=== PATIENT | male | born 1960 | race Caucasian/White ===

== ENCOUNTER 2019-05-03 03:08 | Inpatient (IN) | payer MEDICAID, OTHER ==
[2019-05-03] VITALS (19 sets, daily range): BP systolic 91–183; BP diastolic 59–97; PULSE 69–96; RESP 16–20; Ht 167.6 cm; Wt 72.0 kg
[~2019-05-03] VITALS: Ht 167.6 cm; Wt 72.0 kg
[~2019-05-03 03:08] MED LIST: ASPI-817 PO; ATOR20TA38 PO; FOLI-49 PO; FURO-109 PO; HYDR-3671 PO; ISOS20TA19 PO; LOSA50TA14 PO; METO-448 PO; METO5TAB58 PO; NEPH PO; PIOG30TA12 PO
[2019-05-03] MEDS ORDERED: LIDOCAINE/MYLANTA 40 ML BTL PO STA (03:45)
[2019-05-03] MEDS ORDERED: FAMOTIDINE 20 MG TAB PO STA (03:45)
[2019-05-03] MEDS ORDERED: morphine 2 MG INJ IV STA (04:23)
[2019-05-03] MEDS ORDERED: ONDANSETRON 4 MG INJ IV STA (04:23)
--- NOTE | 2019-05-03 04:37 | ERD ---
ER Documentation Chief Complaint Chief Complaint RUQ pain after eating [place], c/o vomiting EYAD Is a 58-year-old male presents with right upper quadrant pain associated with vomiting since a day. His history is significant for hypertension, end-stage renal disease on dialysis Saturdays, as well as diabetes. Pain was associated with eating by a local earlier today, he states that he has not eaten anything since about 3 PM. He has no prior history of GI surgeries, symptoms are constant. ROS All systems reviewed and are negative except as per history of present illness. Medications Home Meds Reported Medications Multivit/Ca Carb/B Cmplx/Fa* (Petra-Naga*) 1 Tab Tab, 1 TAB PO DAILY, TAB 07/28/14 Metoclopramide* (Reglan*) 5 Mg Tablet, 5 MG PO TID PRN for GERD, TAB 07/28/14 Metoprolol Tartrate* (Lopressor*) 25 Mg Tab, 25 MG PO BID, TAB 07/28/14 Losartan Potassium* (Losartan Potassium*) 50 Mg Tablet, 50 MG PO DAILY, TAB 07/28/14 Isosorbide Dinitrate* (Isosorbide Dinitrate*) 20 Mg Tablet, 20 MG PO TID, TAB 07/28/14 Hydralazine Hcl* (Hydralazine Hcl*) 25 Mg Tab, 25 MG PO TID, TAB 07/28/14 Folic Acid* (Folic Acid*) 1 Mg Tablet, 1 MG PO DAILY, TAB 07/28/14 Aspirin* (Aspirin* EC) 81 Mg Tablet.dr, 81 MG PO DAILY, TAB 07/28/14 Atorvastatin Calcium* (Atorvastatin Calcium*) 20 Mg Tablet, 20 MG PO DAILY for HIGH CHOLESTEROL 02/15/14 Pioglitazone Hcl* (Actos*) 30 Mg Tablet, 30 MG PO DAILY 02/15/14 Furosemide* (Lasix*) 40 Mg Tablet, 40 MG PO QAM 02/15/14 Allergies Allergies: Coded Allergies: No Known Allergy (Unverified , 07/28/14) PMhx/Soc History of Surgery: No Anesthesia Reaction: No Hx Neurological Disorder: No Hx Respiratory Disorders: No Hx Cardiac Disorders: Yes (HYPERTENSION AND HYPERLIPIDIMIA) Hx Psychiatric Problems: No Hx Miscellaneous Medical Probl: Yes (ESRD,DM) Hx Alcohol Use: No Hx Substance Use: No Hx Tobacco Use: No Physical Exam Vitals Vital Signs Date Temp Pulse Resp B/P (MAP) Pulse Ox O2 O2 Flow FiO2 Time Delivery Rate 05/03/19 97.9 89 24 172/100 98 03:10 (124) Physical Exam Const: Moderate distress Head: Atraumatic Eyes: Normal Conjunctiva ENT: Normal External Ears, Nose and Mouth. Neck: Full range of motion. No meningismus. Resp: Clear to auscultation bilaterally Cardio: Regular rate and rhythm, no murmurs Abd: Soft, right upper quadrant tenderness, positive Arenas sign, non distended. Normal bowel sounds Skin: No petechiae or rashes Back: No midline or flank tenderness Ext: No cyanosis, or edema Neur: Awake and alert Psych: Normal Mood and Affect Result Diagram: 05/03/1935805/03/19358 Results 24 hrs Laboratory Tests Test 05/03/19 03:59 White Blood Count 8.5 10^3/ul Red Blood Count 4.67 10^6/ul Hemoglobin 14.4 g/dl Hematocrit 41.4 % Mean Corpuscular Volume 88.7 fl Mean Corpuscular Hemoglobin 30.8 pg Mean Corpuscular Hemoglobin Concent 34.8 g/dl Red Cell Distribution Width 13.9 % Platelet Count 249 10^3/UL Mean Platelet Volume 10.3 fl Immature Granulocytes % 0.500 % Neutrophils % 82.7 % Lymphocytes % 9.1 % Monocytes % 7.1 % Eosinophils % 0.4 % Basophils % 0.2 % Nucleated Red Blood Cells % 0.0 /100WBC Immature Granulocytes # 0.040 10^3/ul Neutrophils # 7.0 10^3/ul Lymphocytes # 0.8 10^3/ul Monocytes # 0.6 10^3/ul Eosinophils # 0.0 10^3/ul Basophils # 0.0 10^3/ul Nucleated Red Blood Cells # 0.0 10^3/ul Sodium Level 138 mmol/L Potassium Level 5.4 mmol/L Chloride Level 89 mmol/L Carbon Dioxide Level 34 mmol/L Anion Gap 15 Blood Urea Nitrogen 65 mg/dl Creatinine 8.85 mg/dl Est Glomerular Filtrat Rate mL/min 6 mL/min Glucose Level 307 mg/dl Calcium Level 9.4 mg/dl Total Bilirubin 0.7 mg/dl Direct Bilirubin 0.10 mg/dl Indirect Bilirubin 0.6 mg/dl Aspartate Amino Transf (AST/SGOT) 97 IU/L Alanine Aminotransferase (ALT/SGPT) 58 IU/L Alkaline Phosphatase 226 IU/L Troponin I Pending Total Protein 8.7 g/dl Albumin 4.6 g/dl Globulin 4.10 g/dl Albumin/Globulin Ratio 1.12 Lipase 377 U/L Current Medications Medications Dose Sig/Alexy Start Time Status Last (Trade) Ordered Route PRN Stop Time Admin Dose Reason Admin Famotidine 20 mg ONCE STAT 05/03/19 DC 05/03/19 (Pepcid) PO 03:45 04:04 05/03/19 03:46 40 ml ONCE STAT 05/03/19 DC 05/03/19 Miscellaneous PO 03:45 04:04 Medication 05/03/19 03:46 (Gi Cocktail (2)) Morphine 2 mg ONCE STAT 05/03/19 DC Sulfate IV 04:23 (morphine) 05/03/19 04:25 Ondansetron 4 mg ONCE STAT 05/03/19 DC HCl (Zofran IV 04:23 Inj) 05/03/19 04:25 Procedures/MDM 58-year-old male, with history of diabetes, end-stage renal disease on dialysis presents with right upper quadrant pain, his history and physical was concerning for acute cholecystitis, this was evident on ultrasound, LFTs were normal except for mildly elevated alkaline phosphatase. Patient had no signs of infection. Patient does have significant comorbidities, he will be admitted to telemetry. Accepting Care Team: Current data and ongoing care discussed. Primary: Júnior Consulting: Pietro Outstanding Data: none EKG: Rate/Rhythm: Normal Sinus Rhythm QRS, ST, T-waves: ST depressions noted inferiorly, no ST elevations Impression: No evidence of ischemia or arrhythmia Repeat EKG: Rate/Rhythm: Normal Sinus Rhythm QRS, ST, T-waves: No changes consistent w/ acute ischemia. ST elevations noted inferiorly, no changes from previous EKG Impression: No evidence of ischemia or arrhythmia Departure Diagnosis: Primary Impression: Abdominal pain Abdominal location: unspecified location Qualified Codes: R10.9 - Unsp ecified abdominal pain Additional Impression: Acute cholecystitis Condition: Serious WENCESLAO GREGG MD May 03, 2019 04:37
--- NOTE | 2019-05-03 04:57 | HP ---
Date/Time of Note Date/Time of Note DATE: 05/03/19 TIME: 04:56 Assessment/Plan VTE Prophylaxis SCD applied (from Nsg): Yes Pharmacological prophylaxis: NA/contraindicated Pharm contraindication: low risk/ambulating Lines/Catheters IV Catheter Type (from Nrsg): Saline Lock Assessment/Plan Hospital Course This is a 58-year male being admitted to the [facility] floor for: 1 right upper quadrant pain: Concern for possible acute cholecystitis. Ultrasound of the gallbladder shows gallstones with mild gallbladder wall thickening. He is afebrile and has a normal white blood cell count. General surgery Dr. Westbrook was consulted by the ED and recommendation was to proceed with a HIDA scan which has been ordered. We will initiate the patient on Zosyn at the current time, gentle IV fluid hydration with normal saline at 40 cc an hour. Pain management. Given patient's extensive cardiac history we will also consult for cardiac clearance. 2 end-stage renal disease: Patient is on hemodialysis Monday. Will consult Dr. Red for further management. Avoid nephrotoxic agents. Continue home meds 3 history of systolic diastolic CHF: Patient does not appear to be decompensated. Will consult cardiology. Will obtain an echocardiogram to assess heart morphology and function. 4. Hypertension: We will hold losartan given patient's hyperkalemia, will resume patient's other medications. 5. diabetes mellitus:We will hold home medications, check hemoglobin A1c, insulin sliding scale 6. Hyperlipidemia: Check lipid panel, continue statin 7 DVT GI prophylaxis: SCDs, H2 latoya Further treatment strategy will be implemented as per the clinical course Result Diagram: 05/03/19 0359 05/03/19 0359 Results 24hrs Laboratory Tests Test 05/03/19 03:59 White Blood Count 8.5 # Red Blood Count 4.67 L Hemoglobin 14.4 Hematocrit 41.4 L Mean Corpuscular Volume 88.7 Mean Corpuscular Hemoglobin 30.8 Mean Corpuscular Hemoglobin Concent 34.8 Red Cell Distribution Width 13.9 Platelet Count 249 Mean Platelet Volume 10.3 # Immature Granulocytes % 0.500 H Neutrophils % 82.7 H Lymphocytes % 9.1 L Monocytes % 7.1 Eosinophils % 0.4 Basophils % 0.2 Nucleated Red Blood Cells % 0.0 Immature Granulocytes # 0.040 H Neutrophils # 7.0 Lymphocytes # 0.8 Monocytes # 0.6 Eosinophils # 0.0 Basophils # 0.0 Nucleated Red Blood Cells # 0.0 Sodium Level 138 Potassium Level 5.4 H Chloride Level 89 L Carbon Dioxide Level 34 H Anion Gap 15 H Blood Urea Nitrogen 65 H Creatinine 8.85 H Est Glomerular Filtrat Rate mL/min 6 L Glucose Level 307 H Calcium Level 9.4 Total Bilirubin 0.7 Direct Bilirubin 0.10 Indirect Bilirubin 0.6 Aspartate Amino Transf (AST/SGOT) 97 H Alanine Aminotransferase (ALT/SGPT) 58 Alkaline Phosphatase 226 H Troponin I 0.027 Total Protein 8.7 H Albumin 4.6 Globulin 4.10 H Albumin/Globulin Ratio 1.12 Lipase 377 H HPI/ROS Admit Date/Time Admit Date/Time Hx of Present Illness Chief complaint: Right upper quadrant pain, vomiting Patient is a poor historian This is a 58-year-old male with past medical history of hypertension, diabetes, end-stage renal disease on HD, CHF, and possible history of [place] who presented to the emergency department complaining of right upper quadrant pain and vomiting. Patient reports that he went to apply local to eat and then after that started experiencing right upper quadrant pain and vomiting. He denies any fevers. He reports that the pain radiated to his back. Allergies: NKDA Medications: Losartan 50 mg p.o. daily Actos 30 mill grams p.o. daily Aspirin 81 mg p.o. daily Atorvastatin 20 mg p.o. daily Folic acid 1 mg p.o. daily Hydralazine 25 mg p.o. 3 times daily As ordered by dinitrate 20 mg p.o. 3 times daily Metoprolol 25 mg p.o. twice daily ROS Const: As per HPI Eyes : No pain discharge or redness or change in visual acuity ENT: No pain, sore throat, congestion, congestion, dysphagia or discharge Respiratory: No shortness of breath, cough, sputum, wheezing, or pleuritic pain Cardiovascular: No chest pain, palpitation, PND, or edema GI : As per HPI Genitourinary: No dysuria, hematuria, flank pain , discharge or CVA tenderness Musculoskeletal: No joint pain, back pain, neck pain, restricted range of motion in neck or joints Skin: No rash, bruising or hives Neuro: No headache, dizziness, syncope, seizure, focal weakness Endocrine: No polyuria, polydipsia, temperature intolerance Psych: No hallucination, depression, anxiety or suicidal ideation PMH/Family/Social Past Medical History End-stage renal disease on hemodialysis Systolic diastolic CHF Hypertension Type 2 diabetes Hyperlipidemia History of [place]? Diabetic retinopathy status post right eye surgical removal awaiting prosthesis Medications Current Medications Ondansetron HCl (Zofran Inj) 4 mg ER BRIDGE PRN IV NAUSEA/VOMITING; Start 05/03/19 at 05:00; Stop 05/04/19 at 04:59 Acetaminophen (Tylenol Tab) 650 mg ER BRIDGE PRN PO .MILD PAIN 1-3 OR TEMP; Start 05/03/19 at 05:00; Stop 05/04/19 at 04:59 Aspirin (Halfprin) 81 mg DAILY PO ; Start 05/03/19 at 09:00; Status UNV Atorvastatin Calcium (Lipitor) 20 mg DAILY PO ; Start 05/03/19 at 09:00; Status UNV Folic Acid (Folic Acid) 1 mg DAILY PO ; Start 05/03/19 at 09:00; Status UNV Hydralazine HCl (Apresoline) 25 mg TID PO ; Start 05/03/19 at 09:00; Status UNV Isosorbide Dinitrate (Isordil) 20 mg TID PO ; Start 05/03/19 at 09:00; Status UNV Metoprolol Tartrate (Lopressor) 25 mg BID PO ; Start 05/03/19 at 09:00; Status UNV Sodium Chloride 1,000 ml @ 40 mls/hr Q24H IV ; Start 05/03/19 at 05:00; Status UNV Piperacillin Sod/ Tazobactam Sod 100 ml @ 200 mls/hr Q6 IVPB ; Start 05/03/19 at 06:00; Status UNV Miscellaneous Information (* Miscellaneous Pharmacy Order) Discontinue current oral sulfonylur... ONCE ONCE XX ; Start 05/03/19 at 05:00; Stop 05/03/19 at 05:01; Status UNV Diagnostic Test (Pha) (Accu-Chek) 1 ea 02 XX ; Start 05/04/19 at 02:00; Status UNV Miscellaneous Information (* Miscellaneous Pharmacy Order) HYPOGLYCEMIA PROTOCOL w... ONCE ONCE XX ; Start 05/03/19 at 05:00; Stop 05/03/19 at 05:01; Status UNV Insulin Aspart (Novolog Insulin Pen) NOVOLOG *MILD* ALGORI... Q4 SC ; Start 05/03/19 at 05:00; Status UNV Miscellaneous Information (* Miscellaneous Pharmacy Order) Discontinue all previ... ONCE ONCE XX ; Start 05/03/19 at 05:00; Stop 05/03/19 at 05:01; Status UNV IV Flush (NS 3 ml) 3 ml PER PROTOCOL IV ; Start 05/03/19 at 05:00; Status UNV Ondansetron HCl (Zofran Inj) 4 mg Q4 PRN IV NAUSEA/VOMITING; Start 05/03/19 at 05:00; Status UNV Acetaminophen (Tylenol Tab) 650 mg Q6H PRN PO .PAIN 1-3 OR TEMP; Start 05/03/19 at 05:00; Status UNV Morphine Sulfate (morphine) 2 mg Q4H PRN IV .PAIN 7-10; Start 05/03/19 at 05:00; Status UNV Docusate Sodium (Colace) 100 mg Q12H PRN PO .CONSTIPATION; Start 05/03/19 at 05:00; Status UNV Bisacodyl (Dulcolax) 5 mg DAILY PRN PO .CONSTIPATION; Start 05/03/19 at 05:00; Status UNV Hydralazine HCl (Apresoline) 10 mg Q4H PRN IV ELEVATED BLOOD PRESSURE; Start 05/03/19 at 05:00; Status UNV Coded Allergies: No Known Allergy (Unverified , 05/03/19) Past Surgical History Left upper extremity AV fistula, right eye surgical removal awaiting prosthesis Family History Significant Family History: no pertinent family hx Social History Alcohol Use: none Smoking Status: Never smoker Drug Use: none Exam/Review of Systems Vital Signs Vitals Vital Signs Date Temp Pulse Resp B/P (MAP) Pulse Ox O2 O2 Flow FiO2 Time Delivery Rate 05/03/19 94 24 175/89 96 Room Air 04:00 (117) 05/03/19 97.9 03:10 Exam Exam General: Patient is currently lying in bed in no acute distress, he was medicated with pain meds HEENT: Atraumatic, normocephalic. Status post surgical removal of the right eye Neck: Supple with full range of motion. No rigidity or meningismus Chest: Nontender Lungs: Clear to auscultation bilaterally no crackles rales or wheezing Heart: Normal S1-S2, Regular rhythm and rate. No murmur, S3, or S4 Abdomen: Soft , nontender, nondistended , bowel sounds are present. No guarding no rebound tenderness , No masses or organomegaly. No costovertebral temporal angle mass Extremities: Normal to inspection, no edema no cyanosis, left upper extremity AV fistula Neurologic: Normal mental status, speech normal, cranial nerves II through XII are intact, motor and sensory are intact, Additional Comments PROCEDURE: XR Chest. CLINICAL INDICATION: Abdominal pain TECHNIQUE: Single portable view of the chest was obtained COMPARISON: CR CHEST 02/19/2014 FINDINGS: The heart is enlarged. There is mild right lower lobe linear scarring. There is a questionable 8 mm left lower lobe lung nodule. The lungs are otherwise clear. There is no pleural effusion or pneumothorax. RPTAT: AA IMPRESSION: Mild Cardiomegaly. Questionable 8 mm lower lobe nodule. Follow-up CT chest on a routine basis is recommended. .Rome Poe MD MD Date Time Electronically viewed and signed by .Rome Poe MD, MD on 05/03/2019 06:31 .S/ CC: WENCESLAO GREGG MD [id number] PROCEDURE: US Abdomen. CLINICAL INDICATION: abdominal pain TECHNIQUE: Multiple real-time images were acquired of the patient's right upper quadrant abdomen and retroperitoneum utilizing a high resolution transd ucer. COMPARISON: None FINDINGS: The liver demonstrates normal echogenicity. The liver is normal in size and no focal solid lesions are seen. The liver measures 15.1 cm in length. The portal vein is patent with normal direction of flow. No intrahepatic biliary dilatation is seen. Multiple calcified gallstones are identified within the gallbladder. There is no pericholecystic fluid . There is mild gallbladder wall thickening, measuring 4 mm. The common bile duct measures 3 mm in maximal dimension. The pancreas is not well seen due to overlying bowel gas. No free fluid is identified. The right kidney is normal in size, and demonstrate normal echogenicity and cortical thickness. The right kidney measures 9.1 cm in long dimension. There is no evidence of hydronephrosis. There are no kidney stones. RPTAT: AA IMPRESSION: Cholelithiasis and mild gallbladder wall thickening. .Rome Poe MD, MD Date Time Electronically viewed and signed by .Rome Poe MD, MD on 05/03/2019 06:30 .S/ CC: WENCESLAO GREGG MD [phone] AUSTIN SCHILLING May 03, 2019 04:57
[2019-05-03] MEDS ORDERED: ACETAMINOPHEN 325 MG TAB PO PRN ×2 (05:00)
[2019-05-03] MEDS ORDERED: hydrALAzine 20 MG INJ IV PRN ×2 (05:00→17:00)
[2019-05-03] MEDS ORDERED: BISACODYL (EC) 5 MG TAB PO PRN (05:00)
[2019-05-03] MEDS ORDERED: DOCUSATE SODIUM 100 MG CAP PO PRN (05:00)
[2019-05-03] MEDS ORDERED: NACL 0.9% 3 ML SYG IV SCH (05:00)
[2019-05-03] MEDS ORDERED: ONDANSETRON 4 MG INJ IV PRN ×2 (05:00)
[2019-05-03] MEDS ORDERED: morphine 2 MG INJ IV PRN (05:00)
[2019-05-03] MEDS: SOD CHLORIDE 0.9% 1,000 ML IV SCH (05:20)
[2019-05-03] MEDS: PIPER-TAZO 2.25 GM (PMX) 50 ML IVPB SCH ×3 (05:20→22:28)
[2019-05-03] MEDS ORDERED: GLUCOSE GEL 15 GRAM TUBE BUCCAL PRN (05:30)
[2019-05-03] MEDS ORDERED: GLUCOSE GEL 15 GRAM TUBE PO PRN ×2 (05:30)
[2019-05-03] MEDS ORDERED: DEXTROSE 50% 50 ML SYRINGE IV PRN ×2 (05:30)
[2019-05-03] MEDS ORDERED: GLUCAGON 1 MG INJ IM PRN (05:30)
[2019-05-03] MEDS: INSULIN ASPART [NOVOLOG] 3 ML PEN SC SCH ×5 (05:55→21:00)
[2019-05-03] MEDS ORDERED: PIPER-TAZO 3.375 GM IV (PMX) 100 ML IVPB SCH (06:00)
[2019-05-03] MEDS ORDERED: METOPROLOL 25 MG TAB PO SCH (09:00)
[2019-05-03] MEDS: ASPIRIN (EC) 81 MG TAB PO SCH (09:23)
[2019-05-03] MEDS: FOLIC ACID 1 MG TAB PO SCH (09:23)
[2019-05-03] MEDS: ISOSORBIDE DINITRATE 20 MG TAB PO SCH ×3 (09:24→22:27)
--- NOTE | 2019-05-03 10:53 | PN ---
Date/Time of Note Date/Time of Note DATE: 05/03/19 TIME: 10:52 Assessment/Plan VTE Prophylaxis Risk score (from Nsg)>0 risk: 3 SCD applied (from Nsg): Yes Pharmacological prophylaxis: NA/contraindicated Pharm contraindication: low risk/ambulating Lines/Catheters IV Catheter Type (from Nrsg): Saline Lock Urinary Cath still in place: No Assessment/Plan Hospital Course SUBJECTIVE: Abdominal pain well controlled with pain medications. OBJECTIVE: Physical Exam General: Adequately build 58 year-old male lying in bed in no apparent distress. HEENT: Normocephalic, atraumatic. Eyes: Anicteric sclerae, conjunctivae clear. Right eye status post enucleation. ENT: Nasal septum midline, oral mucosa moist. Neck supple, no JVD noticed. Respiratory: Bilaterally diminished breath sounds. No use of accessory muscles of respiration. No adventitious breath sounds. Cardiovascular: S1, S2 heard. Regular rate and rhythm. Abdomen: Soft and nondistended. Right upper quadrant tenderness. Bowel sounds positive in all 4 quadrants. Genitourinary: Deferred. Extremities: No cyanosis, no clubbing, no edema. Peripheral pulses palpable. Neurologic: Cranial nerves II through XII grossly intact. The patient is awake, alert, and oriented. Skin: Normal skin turgor. No skin rashes. Labs & Vitals per chart ASSESSMENT & PLAN 58-year-old male with past medical history of hypertension, diabetes mellitus, dyslipidemia, and end-stage renal disease on hemodialysis who presented to the emergency department complaining of right upper quadrant pain vomiting with gallbladder ultrasound showing cholelithiasis and mild gallbladder wall th ickening, who was admitted to inpatient setting for further treatment and evaluation. 1. Symptomatic cholelithiasis. Pending HIDA scan to evaluate for any underlying cholecystitis. General surgery has been consulted. Continue pain control. Continue n.p.o. 2. End-stage renal disease on hemodialysis. HD days Tuesdays//Monday. Obtain nephrology consult. 3. Hypertension. Continue antihypertensives. 4. Diabetes mellitus. Continue sliding scale insulin. 5. Dyslipidemia. Continue statins. 6. Fluids, electrolytes, and nutrition. N.p.o. except for medications. 7. DVT prophylaxis. Bilateral SCDs. 8. Plan. Continue antimicrobials. Await HIDA scan. Await surgical evaluation. The patient was seen in collaboration with Dr. Loomis. Result Diagram: 05/03/19 0359 05/03/19 0359 Results 24hrs Laboratory Tests Test 05/03/19 03:59 05/03/19 05:32 05/03/19 09:22 White Blood Count 8.5 # Red Blood Count 4.67 L Hemoglobin 14.4 Hematocrit 41.4 L Mean Corpuscular Volume 88.7 Mean Corpuscular Hemoglobin 30.8 Mean Corpuscular Hemoglobin Concent 34.8 Red Cell Distribution Width 13.9 Platelet Count 249 Mean Platelet Volume 10.3 # Immature Granulocytes % 0.500 H Neutrophils % 82.7 H Lymphocytes % 9.1 L Monocytes % 7.1 Eosinophils % 0.4 Basophils % 0.2 Nucleated Red Blood Cells % 0.0 Immature Granulocytes # 0.040 H Neutrophils # 7.0 Lymphocytes # 0.8 Monocytes # 0.6 Eosinophils # 0.0 Basophils # 0.0 Nucleated Red Blood Cells # 0.0 Prothrombin Time 12.2 Prothrombin Time Ratio 1.0 INR International Normalized Ratio 0.89 Activated Partial Thromboplast Time 28.0 Sodium Level 138 Potassium Level 5.4 H Chloride Level 89 L Carbon Dioxide Level 34 H Anion Gap 15 H Blood Urea Nitrogen 65 H Creatinine 8.85 H Est Glomerular Filtrat Rate mL/min 6 L Glucose Level 307 H Calcium Level 9.4 Total Bilirubin 0.7 Direct Bilirubin 0.10 Indirect Bilirubin 0.6 Aspartate Amino Transf (AST/SGOT) 97 H Alanine Aminotransferase (ALT/SGPT) 58 Alkaline Phosphatase 226 H Troponin I 0.027 Total Protein 8.7 H Albumin 4.6 Globulin 4.10 H Albumin/Globulin Ratio 1.12 Lipase 377 H Bedside Glucose 234 H 133 Exam/Review of Systems Exam Vitals Vital Signs Date Temp Pulse Resp B/P (MAP) Pulse Ox O2 O2 Flow FiO2 Time Delivery Rate 05/03/19 98.2 88 16 126/59 96 07:31 (81) 05/03/19 Room Air 04:00 Results Results 24hrs Laboratory Tests Test 05/03/19 03:59 05/03/19 05:32 05/03/19 09:22 White Blood Count 8.5 # Red Blood Count 4.67 L Hemoglobin 14.4 Hematocrit 41.4 L Mean Corpuscular Volume 88.7 Mean Corpuscular Hemoglobin 30.8 Mean Corpuscular Hemoglobin Concent 34.8 Red Cell Distribution Width 13.9 Platelet Count 249 Mean Platelet Volume 10.3 # Immature Granulocytes % 0.500 H Neutrophils % 82.7 H Lymphocytes % 9.1 L Monocytes % 7.1 Eosinophils % 0.4 Basophils % 0.2 Nucleated Red Blood Cells % 0.0 Immature Granulocytes # 0.040 H Neutrophils # 7.0 Lymphocytes # 0.8 Monocytes # 0.6 Eosinophils # 0.0 Basophils # 0.0 Nucleated Red Blood Cells # 0.0 Prothrombin Time 12.2 Prothrombin Time Ratio 1.0 INR International Normalized Ratio 0.89 Activated Partial Thromboplast Time 28.0 Sodium Level 138 Potassium Level 5.4 H Chloride Level 89 L Carbon Dioxide Level 34 H Anion Gap 15 H Blood Urea Nitrogen 65 H Creatinine 8.85 H Est Glomerular Filtrat Rate mL/min 6 L Glucose Level 307 H Calcium Level 9.4 Total Bilirubin 0.7 Direct Bilirubin 0.10 Indirect Bilirubin 0.6 Aspartate Amino Transf (AST/SGOT) 97 H Alanine Aminotransferase (ALT/SGPT) 58 Alkaline Phosphatase 226 H Troponin I 0.027 Total Protein 8.7 H Albumin 4.6 Globulin 4.10 H Albumin/Globulin Ratio 1.12 Lipase 377 H Bedside Glucose 234 H 133 Medications Medication Current Medications Ondansetron HCl (Zofran Inj) 4 mg ER BRIDGE PRN IV NAUSEA/VOMITING; Start 05/03/19 at 05:00; Stop 05/04/19 at 04:59 Acetaminophen (Tylenol Tab) 650 mg ER BRIDGE PRN PO .MILD PAIN 1-3 OR TEMP; Start 05/03/19 at 05:00; Stop 05/04/19 at 04:59 Aspirin (Halfprin) 81 mg DAILY PO Last administered on 05/03/19at 09:23; Admin Dose 81 MG; Start 05/03/19 at 09:00 Atorvastatin Calcium (Lipitor) 20 mg DAILY@2100 PO ; Start 05/03/19 at 21:00 Folic Acid (Folic Acid) 1 mg DAILY PO Last administered on 05/03/19at 09:23; Admin Dose 1 MG; Start 05/03/19 at 09:00 Hydralazine HCl (Apresoline) 25 mg TID PO Last administered on 05/03/19at 09:24; Admin Dose 25 MG; Start 05/03/19 at 09:00 Isosorbide Dinitrate (Isordil) 20 mg TID PO Last administered on 05/03/19at 09:24; Admin Dose 20 MG; Start 05/03/19 at 09:00 Metoprolol Tartrate (Lopressor) 25 mg BID PO Last administered on 05/03/19at 09:24; Admin Dose 25 MG; Start 05/03/19 at 09:00 Sodium Chloride 1,000 ml @ 40 mls/hr Q24H IV Last administered on 05/03/19at 05:20; Admin Dose 40 MLS/HR; Start 05/03/19 at 05:00 Insulin Aspart (Novolog Insulin Pen) NOVOLOG *MILD* ALGORI... Q4 SC Last administered on 05/03/19at 05:55; Admin Dose 3 UNIT; Start 05/03/19 at 05:00 IV Flush (NS 3 ml) 3 ml PER PROTOCOL IV ; Start 05/03/19 at 05:00 Ondansetron HCl (Zofran Inj) 4 mg Q4 PRN IV NAUSEA/VOMITING; Start 05/03/19 at 05:00 Acetaminophen (Tylenol Tab) 650 mg Q6H PRN PO .PAIN 1-3 OR TEMP; Start 05/03/19 at 05:00 Morphine Sulfate (morphine) 2 mg Q4H PRN IV .PAIN 7-10; Start 05/03/19 at 05:00 Docusate Sodium (Colace) 100 mg Q12H PRN PO .CONSTIPATION; Start 05/03/19 at 0 5:00 Bisacodyl (Dulcolax) 5 mg DAILY PRN PO .CONSTIPATION; Start 05/03/19 at 05:00 Hydralazine HCl (Apresoline) 10 mg Q4H PRN IV ELEVATED BLOOD PRESSURE; Start 05/03/19 at 05:00 Piperacillin Sod/ Tazobactam Sod 50 ml @ 100 mls/hr Q8 IVPB Last administered on 05/03/19at 05:20; Admin Dose 100 MLS/HR; Start 05/03/19 at 06:00 Miscellaneous Information 1 ea NOTE XX ; Start 05/03/19 at 05:30 Glucose (Glutose) 15 gm Q15M PRN PO DECREASED GLUCOSE; Start 05/03/19 at 05:30 Glucose (Glutose) 22.5 gm Q15M PRN PO DECREASED GLUCOSE; Start 05/03/19 at 05:30 Dextrose (D50w Syringe) 25 ml Q15M PRN IV DECREASED GLUCOSE; Start 05/03/19 at 05:30 Dextrose (D50w Syringe) 50 ml Q15M PRN IV DECREASED GLUCOSE; Start 05/03/19 at 05:30 Glucagon (Glucagen) 1 mg Q15M PRN IM DECREASED GLUCOSE; Start 05/03/19 at 05:30 Glucose (Glutose) 15 gm Q15M PRN BUCCAL DECREASED GLUCOSE; Start 05/03/19 at 05:30 DEVORA SNIDER NP May 03, 2019 10:53
--- NOTE | 2019-05-03 14:27 | CONS ---
Assessment/Plan Assessment/Plan Hospital Course (Demo Recall) Abdominal pain CAD Hypertension Diabetes End-stage renal disease on hemodialysis Patient undergoing work-up for possible cholecystitis. Given his cardiac history, cardiac evaluation was requested Patient states he had a "heart attack" approximately 2 to 3 months ago where he underwent an angiogram at [facility]. He tells me they cleaned out his arteries but does not know if the stent was placed. He was told to continue aspirin and Plavix. Records from all of you need to be obtained, including cardiac cath report and discharge summary. I did ask the equal opportunity assistant to please do so. I will restart patient's Plavix, increased beta-latoya dose, continue statin therapy Consultation Date/Type/Reason Admit Date/Time Type of Consult Cardiology Reason for Consultation Cardiac evaluation Date/Time of Note DATE: 05/03/19 TIME: 14:21 Hx of Present Illness This is a 58-year-old male past medical history of coronary artery disease, diabetes, renal dysfunction on hemodialysis, hypertension who presents with abdominal pain worsening over the past 24 hours. Patient feeling very nauseous with abdominal cramping. Denies any chest pain, shortness of breath, palpitations or dizziness. Patient undergoing work-up for possible cholecystitis. Given his cardiac history, cardiology condition was requested. Patient states he was recently in [facility] approximately 2 months ago when he had a heart attack. He was having chest pain. He did have an angiogram. He tells me "they cleaned my arteries" but he does not know if the stent was placed. He was told to continue aspirin and Plavix. Since then, he is feeling much better. He denies exertional chest pain or shortness of breath. He tells me he walks 5 miles a day at a fast pace at times without exertional chest pain or shortness of breath. 12 point review of systems was performed with all pertinent positives and negatives mentioned above and all else is negative Past Medical History Medical History: coronary artery disease, diabetes, hypertension, renal disease Home Meds Reported Medications Metoprolol Tartrate* (Lopressor*) 25 Mg Tab, 25 MG PO BID, TAB 07/28/14 Losartan Potassium* (Losartan Potassium*) 50 Mg Tablet, 50 MG PO DAILY, TAB 07/28/14 Isosorbide Dinitrate* (Isosorbide Dinitrate*) 20 Mg Tablet, 20 MG PO TID, TAB 07/28/14 Hydralazine Hcl* (Hydralazine Hcl*) 25 Mg Tab, 25 MG PO TID, TAB 07/28/14 Folic Acid* (Folic Acid*) 1 Mg Tablet, 1 MG PO DAILY, TAB 07/28/14 Aspirin* (Aspirin* EC) 81 Mg Tablet.dr, 81 MG PO DAILY, TAB 07/28/14 Atorvastatin Calcium* (Atorvastatin Calcium*) 20 Mg Tablet, 20 MG PO DAILY for HIGH CHOLESTEROL 02/15/14 Pioglitazone Hcl* (Actos*) 30 Mg Tablet, 30 MG PO DAILY 02/15/14 Discontinued Reported Medications Multivit/Ca Carb/B Cmplx/Fa* (Petra-Naga*) 1 Tab Tab, 1 TAB PO DAILY, TAB 07/28/14 Metoclopramide* (Reglan*) 5 Mg Tablet, 5 MG PO TID PRN for GERD, TAB 07/28/14 Furosemide* (Lasix*) 40 Mg Tablet, 40 MG PO QAM 02/15/14 Medications Current Medications Ondansetron HCl (Zofran Inj) 4 mg ER BRIDGE PRN IV NAUSEA/VOMITING; Start 05/03/19 at 05:00; Stop 05/04/19 at 04:59 Acetaminophen (Tylenol Tab) 650 mg ER BRIDGE PRN PO .MILD PAIN 1-3 OR TEMP; Start 05/03/19 at 05:00; Stop 05/04/19 at 04:59 Aspirin (Halfprin) 81 mg DAILY PO Last administered on 05/03/19at 09:23; Admin Dose 81 MG; Start 05/03/19 at 09:00 Atorvastatin Calcium (Lipitor) 20 mg DAILY@2100 PO ; Start 05/03/19 at 21:00 Folic Acid (Folic Acid) 1 mg DAILY PO Last administered on 05/03/19at 09:23; Admin Dose 1 MG; Start 05/03/19 at 09:00 Hydralazine HCl (Apresoline) 25 mg TID PO Last administered on 05/03/19at 13:22; Admin Dose 25 MG; Start 05/03/19 at 09:00 Isosorbide Dinitrate (Isordil) 20 mg TID PO Last administered on 05/03/19at 13:22; Admin Dose 20 MG; Start 05/03/19 at 09:00 Metoprolol Tartrate (Lopressor) 25 mg BID PO Last administered on 05/03/19at 09:24; Admin Dose 25 MG; Start 05/03/19 at 09:00 Sodium Chloride 1,000 ml @ 40 mls/hr Q24H IV Last administered on 05/03/19at 05:20; Admin Dose 40 MLS/HR; Start 05/03/19 at 05:00 Insulin Aspart (Novolog Insulin Pen) NOVOLOG *MILD* ALGORI... Q4 SC Last administered on 05/03/19at 05:55; Admin Dose 3 UNIT; Start 05/03/19 at 05:00 IV Flush (NS 3 ml) 3 ml PER PROTOCOL IV ; Start 05/03/19 at 05:00 Ondansetron HCl (Zofran Inj) 4 mg Q4 PRN IV NAUSEA/VOMITING; Start 05/03/19 at 05:00 Acetaminophen (Tylenol Tab) 650 mg Q6H PRN PO .PAIN 1-3 OR TEMP; Start 05/03/19 at 05:00 Morphine Sulfate (morphine) 2 mg Q4H PRN IV .PAIN 7-10; Start 05/03/19 at 05:00 Docusate Sodium (Colace) 100 mg Q12H PRN PO .CONSTIPATION; Start 05/03/19 at 05:00 Bisacodyl (Dulcolax) 5 mg DAILY PRN PO .CONSTIPATION; Start 05/03/19 at 05:00 Hydralazine HCl (Apresoline) 10 mg Q4H PRN IV ELEVATED BLOOD PRESSURE; Start 05/03/19 at 05:00 Piperacillin Sod/ Tazobactam Sod 50 ml @ 100 mls/hr Q8 IVPB Last administered on 05/03/19at 13:22; Admin Dose 100 MLS/HR; Start 05/03/19 at 06:00 Miscellaneous Information 1 ea NOTE XX ; Start 05/03/19 at 05:30 Glucose (Glutose) 15 gm Q15M PRN PO DECREASED GLUCOSE; Start 05/03/19 at 05:30 Glucose (Glutose) 22.5 gm Q15M PRN PO DECREASED GLUCOSE; Start 05/03/19 at 05:30 Dextrose (D50w Syringe) 25 ml Q15M PRN IV DECREASED GLUCOSE; Start 05/03/19 at 05:30 Dextrose (D50w Syringe) 50 ml Q15M PRN IV DECREASED GLUCOSE; Start 05/03/19 at 05:30 Glucagon (Glucagen) 1 mg Q15M PRN IM DECREASED GLUCOSE; Start 05/03/19 at 05:30 Glucose (Glutose) 15 gm Q15M PRN BUCCAL DECREASED GLUCOSE; Start 05/03/19 at 05:30 Allergies: Coded Allergies: No Known Allergy (Unverified , 05/03/19) Past Surgical History Past Surgical Hx: other (AV fistula) Social History Alcohol Use: none Smoking Status: Never smoker Drug Use: none Exam/Review of Systems Vital Signs Vitals Vital Signs Date Temp Pulse Resp B/P (MAP) Pulse Ox O2 O2 Flow FiO2 Time Delivery Rate 05/03/19 97.8 69 17 173/75 92 11:30 (107) 05/03/19 Room Air 04:00 Exam Constitutional: alert, oriented (No apparent distress) Head: normocephalic Respiratory: clear to auscultation, normal air movement Cardiovascular: regular rate and rhythm (S1-S2 heard) Gastrointestinal: soft, bowel sounds, tender (Discomfort with palpation) Extremities: edema (Trace) Labs Result Diagram: 05/03/19 0359 05/03/19 0359 Results 24hrs Laboratory Tests Test 05/03/19 03:59 05/03/19 05:32 05/03/19 09:22 05/03/19 13:18 White Blood Count 8.5 # Red Blood Count 4.67 L Hemoglobin 14.4 Hematocrit 41.4 L Mean Corpuscular 88.7 Volume Mean Corpuscular 30.8 Hemoglobin Mean Corpuscular 34.8 Hemoglobin Concent Red Cell 13.9 Distribution Width Platelet Count 249 Mean Platelet Volume 10.3 # Immature 0.500 H Granulocytes % Neutrophils % 82.7 H Lymphocytes % 9.1 L Monocytes % 7.1 Eosinophils % 0.4 Basophils % 0.2 Nucleated Red Blood 0.0 Cells % Immature 0.040 H Granulocytes # Neutrophils # 7.0 Lymphocytes # 0.8 Monocytes # 0.6 Eosinophils # 0.0 Basophils # 0.0 Nucleated Red Blood 0.0 Cells # Prothrombin Time 12.2 Prothrombin Time 1.0 Ratio INR International 0.89 Normalized Ratio Activated 28.0 Partial Thromboplast Time Sodium Level 138 Potassium Level 5.4 H Chloride Level 89 L Carbon Dioxide Level 34 H Anion Gap 15 H Blood Urea Nitrogen 65 H Creatinine 8.85 H Est Glomerular 6 L Filtrat Rate mL/min Glucose Level 307 H Calcium Level 9.4 Total Bilirubin 0.7 Direct Bilirubin 0.10 Indirect Bilirubin 0.6 Aspartate Amino 97 H Transf (AST/SGOT) Alanine 58 Aminotransferase (AL T/SGPT) Alkaline Phosphatase 226 H Troponin I 0.027 Total Protein 8.7 H Albumin 4.6 Globulin 4.10 H Albumin/Globulin 1.12 Ratio Lipase 377 H Bedside Glucose 234 H 133 103 Imaging Imaging ECG sinus rhythm at 93 bpm, QRS 86 ms, left ventricular hypertrophy, nonspecific ST abnormalities Medications Medications Current Medications Ondansetron HCl (Zofran Inj) 4 mg ER BRIDGE PRN IV NAUSEA/VOMITING; Start 05/03/19 at 05:00; Stop 05/04/19 at 04:59 Acetaminophen (Tylenol Tab) 650 mg ER BRIDGE PRN PO .MILD PAIN 1-3 OR TEMP; Start 05/03/19 at 05:00; Stop 05/04/19 at 04:59 Aspirin (Halfprin) 81 mg DAILY PO Last administered on 05/03/19at 09:23; Admin Dose 81 MG; Start 05/03/19 at 09:00 Atorvastatin Calcium (Lipitor) 20 mg DAILY@2100 PO ; Start 05/03/19 at 21:00 Folic Acid (Folic Acid) 1 mg DAILY PO Last administered on 05/03/19at 09:23; Admin Dose 1 MG; Start 05/03/19 at 09:00 Hydralazine HCl (Apresoline) 25 mg TID PO Last administered on 05/03/19 13:22; Admin Dose 25 MG; Start 05/03/19 at 09:00 Isosorbide Dinitrate (Isordil) 20 mg TID PO Last administered on 05/03/19 13:22; Admin Dose 20 MG; Start 05/03/19 at 09:00 Metoprolol Tartrate (Lopressor) 25 mg BID PO Last administered on 05/03/19 09:24; Admin Dose 25 MG; Start 05/03/19 at 09:00 Sodium Chloride 1,000 ml @ 40 mls/hr Q24H IV Last administered on 05/03/19 05:20; Admin Dose 40 MLS/HR; Start 05/03/19 at 05:00 Insulin Aspart (Novolog Insulin Pen) NOVOLOG *MILD* ALGORI... Q4 SC Last administered on 05/03/19at 05:55; Admin Dose 3 UNIT; Start 05/03/19 at 05:00 IV Flush (NS 3 ml) 3 ml PER PROTOCOL IV ; Start 05/03/19 at 05:00 Ondansetron HCl (Zofran Inj) 4 mg Q4 PRN IV NAUSEA/VOMITING; Start 05/03/19 at 05:00 Acetaminophen (Tylenol Tab) 650 mg Q6H PRN PO .PAIN 1-3 OR TEMP; Start 05/03/19 at 05:00 Morphine Sulfate (morphine) 2 mg Q4H PRN IV .PAIN 7-10; Start 05/03/19 at 05:00 Docusate Sodium (Colace) 100 mg Q12H PRN PO .CONSTIPATION; Start 05/03/19 at 05:00 Bisacodyl (Dulcolax) 5 mg DAILY PRN PO .CONSTIPATION; Start 05/03/19 at 05:00 Hydralazine HCl (Apresoline) 10 mg Q4H PRN IV ELEVATED BLOOD PRESSURE; Start 05/03/19 at 05:00 Piperacillin Sod/ Tazobactam Sod 50 ml @ 100 mls/hr Q8 IVPB Last administered on 05/03/19at 13:22; Admin Dose 100 MLS/HR; Start 05/03/19 at 06:00 Miscellaneous Information 1 ea NOTE XX ; Start 05/03/19 at 05:30 Glucose (Glutose) 15 gm Q15M PRN PO DECREASED GLUCOSE; Start 05/03/19 at 05:30 Glucose (Glutose) 22.5 gm Q15M PRN PO DECREASED GLUCOSE; Start 05/03/19 at 05:30 Dextrose (D50w Syringe) 25 ml Q15M PRN IV DECREASED GLUCOSE; Start 05/03/19 at 05:30 Dextrose (D50w Syringe) 50 ml Q15M PRN IV DECREASED GLUCOSE; Start 05/03/19 at 05:30 Glucagon (Glucagen) 1 mg Q15M PRN IM DECREASED GLUCOSE; Start 05/03/19 at 05:30 Glucose (Glutose) 15 gm Q15M PRN BUCCAL DECREASED GLUCOSE; Start 05/03/19 at 05:30 Pravin Seymour DO May 03, 2019 14:26
--- NOTE | 2019-05-03 14:46 | CONS ---
Assessment/Plan Assessment/Plan Hospital Course (Demo Recall) 1. end-stage renal disease: Patient is on hemodialysis Monday. 2. Hyperkalemia due to ESRD 3. History of systolic CHF 4. Diabetes mellitus type II 5. Hypertension, uncontrolled 6. Cholelithiasis and mild gallbladder wall thickening. Assessment/Plan (Daily) -Avoid nephrotoxic agents. -phos level - Continue home meds -C/W HD, one today Consultation Date/Type/Reason Admit Date/Time May 03, 2019 at 04:48 Initial Consult Date 05/03/2019 Type of Consult nephrology Reason for Consultation Dr Hooper Date/Time of Note DATE: 05/03/19 TIME: 14:39 Exam/Review of Systems Exam Vitals Vital Signs Date Temp Pulse Resp B/P (MAP) Pulse Ox O2 O2 Flow FiO2 Time Delivery Rate 05/03/19 97.8 69 17 173/75 92 11:30 (107) 05/03/19 Room Air 04:00 Exam left arm av Fistula Constitutional: alert, oriented Eyes: nl conjunctiva, other (righteye globe removed) Respiratory: clear to auscultation Cardiovascular: regular rate and rhythm Gastrointestinal: rebound or guarding Extremities: edema; No normal pulses, No calf tenderness, No cyanosis, No clubbing, No pitting pedal edema, No palpable cord, No tenderness, No other Results Result Diagram: 05/03/19 0359 05/03/19 0359 Results 24hrs Laboratory Tests Test 05/03/19 03:59 05/03/19 05:32 05/03/19 09:22 05/03/19 13:18 White Blood Count 8.5 # Red Blood Count 4.67 L Hemoglobin 14.4 Hematocrit 41.4 L Mean Corpuscular 88.7 Volume Mean Corpuscular 30.8 Hemoglobin Mean Corpuscular 34.8 Hemoglobin Concent Red Cell 13.9 Distribution Width Platelet Count 249 Mean Platelet Volume 10.3 # Immature 0.500 H Granulocytes % Neutrophils % 82.7 H Lymphocytes % 9.1 L Monocytes % 7.1 Eosinophils % 0.4 Basophils % 0.2 Nucleated Red Blood 0.0 Cells % Immature 0.040 H Granulocytes # Neutrophils # 7.0 Lymphocytes # 0.8 Monocytes # 0.6 Eosinophils # 0.0 Basophils # 0.0 Nucleated Red Blood 0.0 Cells # Prothrombin Time 12.2 Prothrombin Time 1.0 Ratio INR International 0.89 Normalized Ratio Activated 28.0 Partial Thromboplast Time Sodium Level 138 Potassium Level 5.4 H Chloride Level 89 L Carbon Dioxide Level 34 H Anion Gap 15 H Blood Urea Nitrogen 65 H Creatinine 8.85 H Est Glomerular 6 L Filtrat Rate mL/min Glucose Level 307 H Calcium Level 9.4 Total Bilirubin 0.7 Direct Bilirubin 0.10 Indirect Bilirubin 0.6 Aspartate Amino 97 H Transf (AST/SGOT) Alanine 58 Aminotransferase (AL T/SGPT) Alkaline Phosphatase 226 H Troponin I 0.027 Total Protein 8.7 H Albumin 4.6 Globulin 4.10 H Albumin/Globulin 1.12 Ratio Lipase 377 H Bedside Glucose 234 H 133 103 Medications Medication Current Medications Aspirin (Halfprin) 81 mg DAILY PO Last administered on 05/03/19at 09:23; Admin Dose 81 MG; Start 05/03/19 at 09:00 Atorvastatin Calcium (Lipitor) 20 mg DAILY@2100 PO ; Start 05/03/19 at 21:00 Folic Acid (Folic Acid) 1 mg DAILY PO Last administered on 05/03/19at 09:23; Admin Dose 1 MG; Start 05/03/19 at 09:00 Hydralazine HCl (Apresoline) 25 mg TID PO Last administered on 05/03/19 13:22; Admin Dose 25 MG; Start 05/03/19 at 09:00 Isosorbide Dinitrate (Isordil) 20 mg TID PO Last administered on 05/03/19at 13:22; Admin Dose 20 MG; Start 05/03/19 at 09:00 Sodium Chloride 1,000 ml @ 40 mls/hr Q24H IV Last administered on 05/03/19at 05:20; Admin Dose 40 MLS/HR; Start 05/03/19 at 05:00 Insulin Aspart (Novolog Insulin Pen) NOVOLOG *MILD* ALGORI... Q4 SC Last administered on 05/03/19at 05:55; Admin Dose 3 UNIT; Start 05/03/19 at 05:00 IV Flush (NS 3 ml) 3 ml PER PROTOCOL IV ; Start 05/03/19 at 05:00 Ondansetron HCl (Zofran Inj) 4 mg Q4 PRN IV NAUSEA/VOMITING; Start 05/03/19 at 05:00 Acetaminophen (Tylenol Tab) 650 mg Q6H PRN PO .PAIN 1-3 OR TEMP; Start 05/03/19 at 05:00 Morphine Sulfate (morphine) 2 mg Q4H PRN IV .PAIN 7-10; Start 05/03/19 at 05:00 Docusate Sodium (Colace) 100 mg Q12H PRN PO .CONSTIPATION; Start 05/03/19 at 05:00 Bisacodyl (Dulcolax) 5 mg DAILY PRN PO .CONSTIPATION; Start 05/03/19 at 05:00 Hydralazine HCl (Apresoline) 10 mg Q4H PRN IV ELEVATED BLOOD PRESSURE; Start 05/03/19 at 05:00 Piperacillin Sod/ Tazobactam Sod 50 ml @ 100 mls/hr Q8 IVPB Last administered on 05/03/19at 13:22; Admin Dose 100 MLS/HR; Start 05/03/19 at 06:00 Miscellaneous Information 1 ea NOTE XX ; Start 05/03/19 at 05:30 Glucose (Glutose) 15 gm Q15M PRN PO DECREASED GLUCOSE; Start 05/03/19 at 05:30 Glucose (Glutose) 22.5 gm Q15M PRN PO DECREASED GLUCOSE; Start 05/03/19 at 05:30 Dextrose (D50w Syringe) 25 ml Q15M PRN IV DECREASED GLUCOSE; Start 05/03/19 at 05:30 Dextrose (D50w Syringe) 50 ml Q15M PRN IV DECREASED GLUCOSE; Start 05/03/19 at 05:30 Glucagon (Glucagen) 1 mg Q15M PRN IM DECREASED GLUCOSE; Start 05/03/19 at 05:30 Glucose (Glutose) 15 gm Q15M PRN BUCCAL DECREASED GLUCOSE; Start 05/03/19 at 05:30 Clopidogrel Bisulfate (plaVIX) 75 mg DAILY PO ; Start 05/03/19 at 14:30 Metoprolol Tartrate (Lopressor) 50 mg BID PO ; Start 05/03/19 at 21:00 LEWIS LOJA May 03, 2019 14:46
--- NOTE | 2019-05-03 15:07 | RADRPT ---
Vent Rate: 71 bpm RR Interval: 844 msec CO Interval: 142 msec QRS Duration: 86 msec QT Interval: 421 msec QTC Interval: 458 msec P-R-T Pitman: 63 - 23 - 135 degrees Sinus rhythm...normal P axis, V-rate 50- 99 Probable left atrial enlargement...P >50mS, <-0.10mV V1 Abnormal T, consider ischemia, lateral leads...T <-0.20mV, I aVL V5 V6 Electronically Signed By: Farhad Villa
--- NOTE | 2019-05-03 15:07 | RADRPT ---
Echocardiogram Report Patient Name: LENI GARDINERPatient ID: [id number] : 1960 (58y 5m)Study Date: 05/03/2019 10:17:58 AM Gender: MAccession #: [id number] Tech: Jan Subramanian [facility] Location: [facility] Ref.Physician: AUSTIN SCHILLING Height(Cm): BSA: Weight(Kg): Quality: AdequateOrder Physician: AUSTIN SCHILLING Account #: Procedures: Echocardiographic Report: Transthoracic echocardiogram with complete 2D, M-Mode, and doppler examination. Indications: Hx of Congestive Heart Failure, pre-op. Measurements: 2D/M Mode Doppler Measurement Value Normal Range Measurement Value Normal Range LVIDd 2D 4.8 [ 4.2 - 5.8 ] cm AV Peak Gabriel 1.2 [ 100.0 - 170.0 ] cm/sec LVIDs 2D 3.2 [ 2.5 - 4.0 ] cm AV Peak PG 5.0 [ 2.0 - 9.0 ] mmHg LVPWd 2D 1.1 [ 0.6 - 1.0 ] cm LVOT Peak Gabriel 0.9 [ 70.0 - 110.0 ] cm/sec IVSd 2D 1.1 [ 0.6 - 1.0 ] cm LVOT Peak PG 3.0 [ 2.0 - 6.0 ] mmHg AoR Diam 2D 3.1 [ 2.6 - 3.4 ] cm MV E Peak Gabriel 0.7 [ 60.0 - 130.0 ] cm/sec EDV 2D 105.0 [ 62.0 - 150.0 ] ml MV A Peak Gabriel 0.9 [ 100.0 - 120.0 ] cm/sec ESV 2D 40.6 [ 21.0 - 61.0 ] ml MV E/A 0.8 [ 0.8 - 1.5 ] ratio EF 2D 61.3 [ 52.0 - 72.0 ] percent MV Decel Time 194 [ 104 - 258 ] msec LA Dimen 2D 4.4 [ 3.0 - 4.0 ] cm Lat E` Gabriel 0.0 [ 10.0 - 15.0 ] cm/sec Lateral E/E` 15.2 [ 1.0 - 2.0 ] ratio Med E` Gabriel 0.0 cm/sec MV E/A 0.8 [ 0.8 - 1.5 ] ratio TR Peak Gabriel 1.8 [ 100.0 - 280.0 ] cm/sec TR Peak PG 13.0 mmHg RVSP 16.0 [ 10.0 - 36.0 ] mmHg Findings: Left Ventricle: Normal left ventricular systolic function. Normal left ventricular cavity size. Mild concentric left ventricular hypertrophy. Ejection fraction is visually estimated at 55 %. Tissue Doppler/Mitral Doppler indices are consistent with impaired relaxation (Stage I diastolic dysfunction). Right Ventricle: Normal right ventricular size. Normal right ventricular systolic function. Left Atrium: There is mild enlargement of left atrium. Right Atrium: The right atrium is normal in size. Mitral Valve: Mild mitral leaflet calcification. Mild mitral annular calcification. Trace mitral regurgitation. Aortic Valve: No significant aortic stenosis or insufficiency. Aortic cusps appear mildly calcified. Tricuspid Valve: Normal appearance of the tricuspid valve. The estimated Peak RVSP is 16 mmHg. There is trace tricuspid regurgitation. Pericardium: Normal pericardium with no significant pericardial effusion. Aorta: Normal aortic root. IVC: Normal size and normal respiratory collapse consistent with normal right atrial pressure. Conclusions: Normal left ventricular systolic function. Normal left ventricular cavity size. Mild concentric left ventricular hypertrophy. Ejection fraction is visually estimated at 55 %. Tissue Doppler/Mitral Doppler indices are consistent with impaired relaxation (Stage I diastolic dysfunction). Normal right ventricular size. Normal right ventricular systolic function. No significant valvular stenosis or regurgitation seen. Normal pericardium with no significant pericardial effusion. Electronically Signed By: Pravin Seymour 2019-05-03 15:06:23 PDT
[2019-05-03] MEDS: CLOPIDOGREL 75 MG TAB PO SCH (15:22)
--- NOTE | 2019-05-03 17:27 | CONS ---
Assessment/Plan Assessment/Plan Assessment/Plan (Daily) Cholelithiasis, possible choledocholithiasis, possible cholecystitis Based on patient's clinical findings, cholecystitis is unlikely. His pain is quite lateral. Further the HIDA scan was really nondiagnostic. It failed to visualize the gallbladder small bowel or common duct. Further ultrasound just shows a mildly thickened gallbladder with stones. No pericholecystic fluid. MRCP and GI consultation for possible ERCP. Further recommendations based on MRCP Consultation Date/Type/Reason Admit Date/Time May 03, 2019 at 04:48 Date/Time of Note DATE: 05/03/19 TIME: 17:23 Hx of Present Illness Patient is a 58-year-old male who presented to the ER last night with right upper quadrant pain and emesis. He states that his symptoms began the day before. He has no prior episodes. He denies radiation to his back or shoulder. Pain occurred after eating. No prior GI symptoms or surgeries. An ultrasound revealed cholelithiasis and mild gallbladder wall thickening. I was called for consultation. 14 point review of systems was performed. Pertinent negatives and positives per HPI. Past Medical History Medical History: congestive heart failure, coronary artery disease, diabetes, hypertension, other (End-stage renal disease on dialysis diabetic retinopathy) Home Meds Reported Medications Metoprolol Tartrate* (Lopressor*) 25 Mg Tab, 25 MG PO BID, TAB 07/28/14 Losartan Potassium* (Losartan Potassium*) 50 Mg Tablet, 50 MG PO DAILY, TAB 07/28/14 Isosorbide Dinitrate* (Isosorbide Dinitrate*) 20 Mg Tablet, 20 MG PO TID, TAB 07/28/14 Hydralazine Hcl* (Hydralazine Hcl*) 25 Mg Tab, 25 MG PO TID, TAB 07/28/14 Folic Acid* (Folic Acid*) 1 Mg Tablet, 1 MG PO DAILY, TAB 07/28/14 Aspirin* (Aspirin* EC) 81 Mg Tablet.dr, 81 MG PO DAILY, TAB 07/28/14 Atorvastatin Calcium* (Atorvastatin Calcium*) 20 Mg Tablet, 20 MG PO DAILY for HIGH CHOLESTEROL 02/15/14 Pioglitazone Hcl* (Actos*) 30 Mg Tablet, 30 MG PO DAILY 02/15/14 Discontinued Reported Medications Multivit/Ca Carb/B Cmplx/Fa* (Petra-Naga*) 1 Tab Tab, 1 TAB PO DAILY, TAB 07/28/14 Metoclopramide* (Reglan*) 5 Mg Tablet, 5 MG PO TID PRN for GERD, TAB 07/28/14 Furosemide* (Lasix*) 40 Mg Tablet, 40 MG PO QAM 02/15/14 Medications Current Medications Aspirin (Halfprin) 81 mg DAILY PO Last administered on 05/03/19at 09:23; Admin Dose 81 MG; Start 05/03/19 at 09:00 Atorvastatin Calcium (Lipitor) 20 mg DAILY@2100 PO ; Start 05/03/19 at 21:00 Folic Acid (Folic Acid) 1 mg DAILY PO Last administered on 05/03/19at 09:23; Admin Dose 1 MG; Start 05/03/19 at 09:00 Hydralazine HCl (Apresoline) 25 mg TID PO Last administered on 05/03/19at 13:22; Admin Dose 25 MG; Start 05/03/19 at 09:00 Isosorbide Dinitrate (Isordil) 20 mg TID PO Last administered on 05/03/19at 13:22; Admin Dose 20 MG; Start 05/03/19 at 09:00 Sodium Chloride 1,000 ml @ 40 mls/hr Q24H IV Last administered on 05/03/19at 05:20; Admin Dose 40 MLS/HR; Start 05/03/19 at 05:00 Insulin Aspart (Novolog Insulin Pen) NOVOLOG *MILD* ALGORI... Q4 SC Last administered on 05/03/19at 05:55; Admin Dose 3 UNIT; Start 05/03/19 at 05:00 IV Flush (NS 3 ml) 3 ml PER PROTOCOL IV ; Start 05/03/19 at 05:00 Ondansetron HCl (Zofran Inj) 4 mg Q4 PRN IV NAUSEA/VOMITING; Start 05/03/19 at 05:00 Acetaminophen (Tylenol Tab) 650 mg Q6H PRN PO .PAIN 1-3 OR TEMP; Start 05/03/19 at 05:00 Morphine Sulfate (morphine) 2 mg Q4H PRN IV .PAIN 7-10; Start 05/03/19 at 05:00 Docusate Sodium (Colace) 100 mg Q12H PRN PO .CONSTIPATION; Start 05/03/19 at 05:00 Bisacodyl (Dulcolax) 5 mg DAILY PRN PO .CONSTIPATION; Start 05/03/19 at 05:00 Piperacillin Sod/ Tazobactam Sod 50 ml @ 100 mls/hr Q8 IVPB Last administered on 05/03/19at 13:22; Admin Dose 100 MLS/HR; Start 05/03/19 at 06:00 Miscellaneous Information 1 ea NOTE XX ; Start 05/03/19 at 05:30 Glucose (Glutose) 15 gm Q15M PRN PO DECREASED GLUCOSE; Start 05/03/19 at 05:30 Glucose (Glutose) 22.5 gm Q15M PRN PO DECREASED GLUCOSE; Start 05/03/19 at 05:30 Dextrose (D50w Syringe) 25 ml Q15M PRN IV DECREASED GLUCOSE; Start 05/03/19 at 05:30 Dextrose (D50w Syringe) 50 ml Q15M PRN IV DECREASED GLUCOSE; Start 05/03/19 at 05:30 Glucagon (Glucagen) 1 mg Q15M PRN IM DECREASED GLUCOSE; Start 05/03/19 at 05:30 Glucose (Glutose) 15 gm Q15M PRN BUCCAL DECREASED GLUCOSE; Start 05/03/19 at 05:30 Clopidogrel Bisulfate (plaVIX) 75 mg DAILY PO Last administered on 05/03/19at 15:22; Admin Dose 75 MG; Start 05/03/19 at 14:30 Metoprolol Tartrate (Lopressor) 50 mg BID PO ; Start 05/03/19 at 21:00 Hydralazine HCl (Apresoline) 25 mg Q4H PRN IV ELEVATED BLOOD PRESSURE; Start 05/03/19 at 17:00 Allergies: Coded Allergies: No Known Allergy (Unverified , 05/03/19) Past Surgical History Past Surgical Hx: no surgical history, other Family History Significant Family History: no pertinent family hx Social History Alcohol Use: none Smoking Status: Never smoker Drug Use: none Exam/Review of Systems Exam Vitals Vital Signs Date Temp Pulse Resp B/P (MAP) Pulse Ox O2 O2 Flow FiO2 Time Delivery Rate 05/03/19 98.2 76 17 131/62 95 15:28 (85) 05/03/19 Room Air 04:00 Constitutional: alert, oriented, well developed Psych: no complaints Head: normocephalic ENMT: nl external ears & nose Neck: supple Respiratory: clear to auscultation Cardiovascular: regular rate and rhythm Gastrointestinal: soft, other (Nondistended, right flank tenderness, no right upper quadrant or epigastric tenderness) Extremities: normal pulses Neurological: RECREATION THERAPY DIRECTOR II-XII intact Skin: nl turgor, rash or lesions Lymph: nl lymph nodes Results Result Diagram: 05/03/19 0359 05/03/19 0359 Results 24hrs Laboratory Tests Test 05/03/19 03:59 05/03/19 05:32 05/03/19 09:22 05/03/19 13:18 White Blood Count 8.5 # Red Blood Count 4.67 L Hemoglobin 14.4 Hematocrit 41.4 L Mean Corpuscular 88.7 Volume Mean Corpuscular 30.8 Hemoglobin Mean Corpuscular 34.8 Hemoglobin Concent Red Cell 13.9 Distribution Width Platelet Count 249 Mean Platelet Volume 10.3 # Immature 0.500 H Granulocytes % Neutrophils % 82.7 H Lymphocytes % 9.1 L Monocytes % 7.1 Eosinophils % 0.4 Basophils % 0.2 Nucleated Red Blood 0.0 Cells % Immature 0.040 H Granulocytes # Neutrophils # 7.0 Lymphocytes # 0.8 Monocytes # 0.6 Eosinophils # 0.0 Basophils # 0.0 Nucleated Red Blood 0.0 Cells # Prothrombin Time 12.2 Prothrombin Time 1.0 Ratio INR International 0.89 Normalized Ratio Activated 28.0 Partial Thromboplast Time Sodium Level 138 Potassium Level 5.4 H Chloride Level 89 L Carbon Dioxide Level 34 H Anion Gap 15 H Blood Urea Nitrogen 65 H Creatinine 8.85 H Est Glomerular 6 L Filtrat Rate mL/min Glucose Level 307 H Calcium Level 9.4 Total Bilirubin 0.7 Direct Bilirubin 0.10 Indirect Bilirubin 0.6 Aspartate Amino 97 H Transf (AST/SGOT) Alanine 58 Aminotransferase (AL T/SGPT) Alkaline Phosphatase 226 H Troponin I 0.027 Total Protein 8.7 H Albumin 4.6 Globulin 4.10 H Albumin/Globulin 1.12 Ratio Lipase 377 H Hepatitis B Surface Pending Antigen Hepatitis B Core Pending Total Antibody Hepatitis C Antibody Pending Bedside Glucose 234 H 133 103 Imaging Imaging Patient: LENI GARDINER : 1960 Age: 58 Sex: M MR #: [id number] DOS: 05/03/19 0345 Ordering MD: WENCESLAO GREGG MD Location: E/R Room/Bed: PROCEDURE: US Abdomen. CLINICAL INDICATION: abdominal pain TECHNIQUE: Multiple real-time images were acquired of the patient's right upper quadrant abdomen and retroperitoneum utilizing a high resolution transducer. COMPARISON: None FINDINGS: The liver demonstrates normal echogenicity. The liver is normal in size and no focal solid lesions are seen. The liver measures 15.1 cm in length. The portal vein is patent with normal direction of flow. No intrahepatic biliary dilatation is seen. Multiple calcified gallstones are identified within the gallbladder. There is no pericholecystic fluid . There is mild gallbladder wall thickening, measuring 4 mm. The common bile duct measures 3 mm in maximal dimension. The pancreas is not well seen due to overlying bowel gas. No free fluid is identified. The right kidney is normal in size, and demonstrate normal echogenicity and cortical thickness. The right kidney measures 9.1 cm in long dimension. There is no evidence of hydronephrosis. There are no kidney stones. RPTAT: AA IMPRESSION: Cholelithiasis and mild gallbladder wall thickening. .Rome Poe MD, MD Date Time Electronically viewed and signed by .Rome Poe MD, MD on 05/03/2019 06:30 .S/ CC: WENCESLAO GREGG MD Patient: LENI GARDINER : 1960 Age: 58 Sex: M MR #: [id number] DOS: 05/03/19 0000 Ordering MD: AUSTIN SCHILLING MD Location: 6WM Room/Bed: 610-B PROCEDURE: HIDA Scan CLINICAL INDICATION: Abdominal pain TECHNIQUE: Multiple scintigraphic images were obtained through the abdomen following administration of 8.2 mCi of technetium 99 Mebrofenin. Serial images were obtained over 60 minutes . In addition, delayed images were obtained up to 3.5 hours. COMPARISON: 05/03/2019 FINDINGS: There is prompt uptake of radiotracer in the liver . There is no visualization of the bile ducts and small bowel. There is nonvisualization of the gallbladder, suspicious for an obstructed cystic duct. RPTAT: AA IMPRESSION: Nonvisualization of the gallbladder, suspicious for an obstructed cystic duct. Nonvisualization of the CBD and small bowel, suspicious for a possible CBD obstruction. Follow-up MRCP is recommended. .Rome Poe MD, MD Date Time Electronically viewed and signed by .Rome Poe MD, MD on 05/03/2019 15:34 .S/ CC: AUSTIN SCHILLING [phone] Medications Medication Current Medications Aspirin (Halfprin) 81 mg DAILY PO Last administered on 05/03/19at 09:23; Admin Dose 81 MG; Start 05/03/19 at 09:00 Atorvastatin Calcium (Lipitor) 20 mg DAILY@2100 PO ; Start 05/03/19 at 21:00 Folic Acid (Folic Acid) 1 mg DAILY PO Last administered on 05/03/19at 09:23; Admin Dose 1 MG; Start 05/03/19 at 09:00 Hydralazine HCl (Apresoline) 25 mg TID PO Last administered on 05/03/19at 13:22; Admin Dose 25 MG; Start 05/03/19 at 09:00 Isosorbide Dinitrate (Isordil) 20 mg TID PO Last administered on 05/03/19at 13:22; Admin Dose 20 MG; Start 05/03/19 at 09:00 Sodium Chloride 1,000 ml @ 40 mls/hr Q24H IV Last administered on 05/03/19at 05:20; Admin Dose 40 MLS/HR; Start 05/03/19 at 05:00 Insulin Aspart (Novolog Insulin Pen) NOVOLOG *MILD* ALGORI... Q4 SC Last administered on 05/03/19at 05:55; Admin Dose 3 UNIT; Start 05/03/19 at 05:00 IV Flush (NS 3 ml) 3 ml PER PROTOCOL IV ; Start 05/03/19 at 05:00 Ondansetron HCl (Zofran Inj) 4 mg Q4 PRN IV NAUSEA/VOMITING; Start 05/03/19 at 05:00 Acetaminophen (Tylenol Tab) 650 mg Q6H PRN PO .PAIN 1-3 OR TEMP; Start 05/03/19 at 05:00 Morphine Sulfate (morphine) 2 mg Q4H PRN IV .PAIN 7-10; Start 05/03/19 at 05:00 Docusate Sodium (Colace) 100 mg Q12H PRN PO .CONSTIPATION; Start 05/03/19 at 05:00 Bisacodyl (Dulcolax) 5 mg DAILY PRN PO .CONSTIPATION; Start 05/03/19 at 05:00 Piperacillin Sod/ Tazobactam Sod 50 ml @ 100 mls/hr Q8 IVPB Last administered on 05/03/19at 13:22; Admin Dose 100 MLS/HR; Start 05/03/19 at 06:00 Miscellaneous Information 1 ea NOTE XX ; Start 05/03/19 at 05:30 Glucose (Glutose) 15 gm Q15M PRN PO DECREASED GLUCOSE; Start 05/03/19 at 05:30 Glucose (Glutose) 22.5 gm Q15M PRN PO DECREASED GLUCOSE; Start 05/03/19 at 05:30 Dextrose (D50w Syringe) 25 ml Q15M PRN IV DECREASED GLUCOSE; Start 05/03/19 at 05:30 Dextrose (D50w Syringe) 50 ml Q15M PRN IV DECREASED GLUCOSE; Start 05/03/19 at 05:30 Glucagon (Glucagen) 1 mg Q15M PRN IM DECREASED GLUCOSE; Start 05/03/19 at 05:30 Glucose (Glutose) 15 gm Q15M PRN BUCCAL DECREASED GLUCOSE; Start 05/03/19 at 05:30 Clopidogrel Bisulfate (plaVIX) 75 mg DAILY PO Last administered on 05/03/19at 15:22; Admin Dose 75 MG; Start 05/03/19 at 14:30 Metoprolol Tartrate (Lopressor) 50 mg BID PO ; Start 05/03/19 at 21:00 Hydralazine HCl (Apresoline) 25 mg Q4H PRN IV ELEVATED BLOOD PRESSURE; Start 05/03/19 at 17:00 SPENCER HUANG MD May 03, 2019 17:27
[2019-05-03] MEDS ORDERED: ATORVASTATIN 20 MG TAB PO SCH (21:00)
--- NOTE | 2019-05-03 22:19 | CONS ---
DATE OF ADMISSION: 05/03/2019 DATE OF CONSULTATION: TYPE OF CONSULTATION: Renal. REASON FOR CONSULTATION: Hemodialysis. HISTORY OF PRESENT ILLNESS: This is a 58-year-old male with a past medical history of end-stage fernandez l disease on hemodialysis for the last 5 years, hypertension, diabetes, CHF, presented to the emergen cy department complaining of right upper quadrant pain and vomiting. The patient said that he has be en having this right upper quadrant pain for the last few days. Denied any fevers. The patient was having some nausea. Denied any vomiting. On admission, vital signs showed a temperature 97.9, pulse 94, respirations 20, blood pressure 175/89. The patient had gallbladder ultrasound that showed chol elithiasis and mild gallbladder thickening and the patient was admitted for possible cholecystitis. The patient received a full session of hemodialysis yesterday. The patient goes to [facility] hemodialys is at [place] and gets dialysis for 3 hours than 50 minutes Monday, and Monday. PAST MEDICAL HISTORY: 1. Diabetes. 2. Hypertension. 3. Hyperlipidemia. 4. CHF. 5. End-stage renal disease, on hemodialysis. 6. Questionable coronary artery disease. ALLERGIES: NONE. PAST SURGICAL HISTORY: Patient had a left upper extremity fistula placement. MEDICATIONS TAKING AT HOME: 1. Losartan 50. 2. Actos 30. 3. Aspirin 81. 4. Atorvastatin 20. 5. Folic acid. 6. Hydralazine 25 three times a day. 7. Metoprolol. 8. Imdur 20 t.i.d. SOCIAL HISTORY: Denies any history of smoking, alcohol or any drug use. REVIEW OF SYSTEMS: The patient complained of right upper quadrant pain for a few days and has some n ausea. Denied any vomiting denied any fevers and chills. PHYSICAL EXAMINATION: VITAL SIGNS: Currently temperature 97.9, pulse 94, respirations 24, blood pressure 175/81. GENERAL: The patient is awake, alert, oriented, does not appear to be in any acute distress. HEENT: Normocephalic, atraumatic. No scleral icterus. Status post surgical removal of the right ey e. NECK: Supple. No JVD. HEART: Regular rate and rhythm. LUNGS: Clear to auscultate bilaterally. ABDOMEN: Soft. Some tenderness present in the right upper quadrant. No peritoneal signs. EXTREMITIES: No clubbing, cyanosis, or edema. The patient has a left upper extremity fistula with a good bruit and thrill. LABORATORY DATA: Shows white count of 8.5, hemoglobin 14.4, platelet count 249, potassium of 5.4, bi carbonate 34, BUN of 65, creatinine 8.85. Lipase 377. Alkaline phosphatase 226. INR of 0.89. IMAGING: Chest x-ray is questionable 8 mm lower lobe nodule, mild cardiomegaly. Gallbladder ultraso und is cholecystitis and mild gallbladder wall thickening. ASSESSMENT AND PLAN: This is a 58-year-old male who presented with: 1. Right upper quadrant pain with symptomatic cholelithiasis. Rule out acute cholecystitis. 2. Hyperkalemia. 3. End-stage renal disease, on hemodialysis. 4. Hypertension. 5. Diabetes. 6. Dyslipidemia. 7. History of congestive heart failure. 8. Questionable coronary artery disease. PLAN: At this period of time, the patient is admitted to [facility]. We will do hemodialysis today for hy perkalemia and uremia since the patient will be going for surgery. Continue with the patient's home blood pressure medications. Recommend a cardiology evaluation. Consider holding Plavix as the patie nt is going to go for surgery. Rest of the treatment will depend on the patient's hospitalization co angelinee. Dictated By: TOBI CHA/ERIKA Conf#: [id number] DID#: [id number] CC: AUSTIN SCHILLING MD;*EndCC*
[2019-05-03] MEDS: METOPROLOL 50 MG TAB PO SCH (22:26)
[2019-05-04] MEDS: INSULIN ASPART [NOVOLOG] 3 ML PEN SC SCH ×6 (01:00→20:21)
[2019-05-04] MEDS ORDERED: ACCU-CHEK XX SCH (02:00)
[2019-05-04 03:35] VITALS: BP 133/63; PULSE 91; RESP 18
[2019-05-04] MEDS: PIPER-TAZO 2.25 GM (PMX) 50 ML IVPB SCH ×3 (05:23→21:52)
[2019-05-04] MEDS: SOD CHLORIDE 0.9% 1,000 ML IV SCH (05:26)
[2019-05-04 07:48] VITALS: BP 131/63; PULSE 79; RESP 16
--- NOTE | 2019-05-04 08:38 | PN ---
Date/Time of Note Date/Time of Note DATE: 05/04/19 TIME: 08:34 Assessment/Plan Lines/Catheters IV Catheter Type (from Nrs): Peripheral IV Davidson in Place (from Nrs): No Assessment/Plan Assessment/Plan Spittle day #2 for questionable cholecystitis Patient is tolerating clears and having decreased abdominal pain and tenderness MRCP still pending based on abnormal HIDA scan results. Further recommendations to follow based on MRCP but patient likely able to be discharged home tomorrow with outpatient follow-up. Subjective 24 Hr Interval Summary Constitutional: improved, other (c/o minimal pain) Pain Control: mild Exam/Review of Systems Vital Signs Vitals Vital Signs Date Temp Pulse Resp B/P (MAP) Pulse Ox O2 O2 Flow FiO2 Time Delivery Rate 05/04/19 98.4 79 16 131/63 98 Room Air 07:48 (85) Intake and Output 05/03/19 05/03/19 05/04/19 1515:00 23:00 07:00 IntakeIntake Total 600 ml 1790 ml OutputOutput Total 2700 ml BalanceBalance -2100 ml 1790 ml Exam Constitutional: alert, oriented, well developed Gastrointestinal: other (Nondistended, very slight right upper quadrant tenderness on deep palpation) Results Result Diagram: 05/04/19 0530 05/04/19 0530 SPENCER HUANG MD May 04, 2019 08:38
[2019-05-04] MEDS: FOLIC ACID 1 MG TAB PO SCH (09:24)
[2019-05-04] MEDS: CLOPIDOGREL 75 MG TAB PO SCH (09:24)
[2019-05-04] MEDS: ASPIRIN (EC) 81 MG TAB PO SCH (09:25)
[2019-05-04] MEDS: ISOSORBIDE DINITRATE 20 MG TAB PO SCH ×3 (09:25→20:09)
[2019-05-04] MEDS: METOPROLOL 50 MG TAB PO SCH ×2 (09:26→20:10)
[2019-05-04 11:18] VITALS: BP 102/67; PULSE 80; RESP 16
--- NOTE | 2019-05-04 11:49 | PN ---
Date/Time of Note Date/Time of Note DATE: 05/04/19 TIME: 11:45 Assessment/Plan VTE Prophylaxis Risk score (from Nsg)>0 risk: 3 SCD applied (from Nsg): Yes Pharmacological prophylaxis: NA/contraindicated Pharm contraindication: low risk/ambulating Lines/Catheters IV Catheter Type (from Nrsg): Peripheral IV Urinary Cath still in place: No Assessment/Plan Hospital Course SUBJECTIVE: Abdominal pain well controlled with pain medications. OBJECTIVE: Physical Exam General: Adequately build 58 year-old male lying in bed in no apparent distress. HEENT: Normocephalic, atraumatic. Eyes: Anicteric sclerae, conjunctivae clear. Right eye status post enucleation. ENT: Nasal septum midline, oral mucosa moist. Neck supple, no JVD noticed. Respiratory: Bilaterally diminished breath sounds. No use of accessory muscles of respiration. No adventitious breath sounds. Cardiovascular: S1, S2 heard. Regular rate and rhythm. Abdomen: Soft and nondistended. Right upper quadrant tenderness. Bowel sounds positive in all 4 quadrants. Genitourinary: Deferred. Extremities: No cyanosis, no clubbing, no edema. Peripheral pulses palpable. Neurologic: Cranial nerves II through XII grossly intact. The patient is awake, alert, and oriented. Skin: Normal skin turgor. No skin rashes. Labs & Vitals per chart ASSESSMENT & PLAN 58-year-old male with past medical history of hypertension, diabetes mellitus, dyslipidemia, and end-stage renal disease on hemodialysis who presented to the emergency department complaining of right upper quadrant pain vomiting with gallbladder ultrasound showing cholelithiasis and mild gallbladder wall thickening, who was admitted to inpatient setting for further treatment and evaluation. 1. Symptomatic cholelithiasis. HIDA scan: Nonvisualization of the gallbladder, suspicious for an obstructed cystic duct. Nonvisualization of the CBD and small bowel, suspicious for a possible CBD obs truction General surgery following. Pending MRCP. Pending gastroenterology evaluation. Continue pain control. 2. Transaminitis with hyperbilirubinemia. Most probably secondary to #1. trend LFTs. Avoid hepatotoxic medications. 3. End-stage renal disease on hemodialysis. HD days Tuesdays//Monday. Nephrology following. 4. Hypertension. Continue antihypertensives. 5. Diabetes mellitus. Continue sliding scale insulin. 6. Dyslipidemia. Hold statins because of worsening LFTs. 7. Fluids, electrolytes, and nutrition. Clear liquids. 8. DVT prophylaxis. Bilateral SCDs. 9. Plan. Continue antimicrobials. Await MRCP. Await gastroenterology evaluation. The patient was seen in collaboration with Dr. Loomis. Result Diagram: 05/04/1930 05/04/19 0530 Results 24hrs Laboratory Tests Test 05/03/19 13:18 05/03/19 22:19 05/04/19 01:18 05/04/19 05:24 Bedside Glucose 103 107 157 105 Test 05/04/19 05:30 05/04/19 09:20 White Blood Count 5.5 # Red Blood Count 4.80 Hemoglobin 14.6 Hematocrit 44.0 Mean Corpuscular 91.7 Volume Mean Corpuscular 30.4 Hemoglobin Mean Corpuscular 33.2 Hemoglobin Concent Red Cell 14.5 Distribution Width Platelet Count 210 Mean Platelet Volume 10.5 H Immature 0.400 Granulocytes % Neutrophils % 64.7 Lymphocytes % 19.9 Monocytes % 9.6 Eosinophils % 4.7 Basophils % 0.7 Nucleated Red Blood 0.0 Cells % Immature 0.020 Granulocytes # Neutrophils # 3.6 Lymphocytes # 1.1 Monocytes # 0.5 Eosinophils # 0.3 Basophils # 0.0 Nucleated Red Blood 0.0 Cells # Sodium Level 142 Potassium Level 5.0 Chloride Level 98 Carbon Dioxide Level 30 Anion Gap 14 H Blood Urea Nitrogen 36 #H Creatinine 7.70 H Est Glomerular 7 L Filtrat Rate mL/min Glucose Level 120 # Calcium Level 9.6 Phosphorus Level 5.9 H Magnesium Level 2.3 Total Bilirubin 1.9 H Direct Bilirubin 1.00 #H Indirect Bilirubin 0.9 Aspartate Amino 150 #H Transf (AST/SGOT) Alanine 144 H Aminotransferase (AL T/SGPT) Alkaline Phosphatase 236 H Total Protein 7.9 Albumin 4.1 Globulin 3.80 H Albumin/Globulin 1.07 Ratio Vitamin D 45.5 1,25-Dihydroxy Bedside Glucose 181 Exam/Review of Systems Exam Vitals Vital Signs Date Temp Pulse Resp B/P (MAP) Pulse Ox O2 O2 Flow FiO2 Time Delivery Rate 05/04/19 98.2 80 16 102/67 97 Room Air 11:18 (79) Intake and Output 05/03/19 05/03/19 05/04/19 1515:00 23:00 07:00 IntakeIntake Total 600 ml 1790 ml OutputOutput Total 2700 ml BalanceBalance -2100 ml 1790 ml Results Results 24hrs Laboratory Tests Test 05/03/19 13:18 05/03/19 22:19 05/04/19 01:18 05/04/19 05:24 Bedside Glucose 103 107 157 105 Test 05/04/19 05:30 05/04/19 09:20 White Blood Count 5.5 # Red Blood Count 4.80 Hemoglobin 14.6 Hematocrit 44.0 Mean Corpuscular 91.7 Volume Mean Corpuscular 30.4 Hemoglobin Mean Corpuscular 33.2 Hemoglobin Concent Red Cell 14.5 Distribution Width Platelet Count 210 Mean Platelet Volume 10.5 H Immature 0.400 Granulocytes % Neutrophils % 64.7 Lymphocytes % 19.9 Monocytes % 9.6 Eosinophils % 4.7 Basophils % 0.7 Nucleated Red Blood 0.0 Cells % Immature 0.020 Granulocytes # Neutrophils # 3.6 Lymphocytes # 1.1 Monocytes # 0.5 Eosinophils # 0.3 Basophils # 0.0 Nucleated Red Blood 0.0 Cells # Sodium Level 142 Potassium Level 5.0 Chloride Level 98 Carbon Dioxide Level 30 Anion Gap 14 H Blood Urea Nitrogen 36 #H Creatinine 7.70 H Est Glomerular 7 L Filtrat Rate mL/min Glucose Level 120 # Calcium Level 9.6 Phosphorus Level 5.9 H Magnesium Level 2.3 Total Bilirubin 1.9 H Direct Bilirubin 1.00 #H Indirect Bilirubin 0.9 Aspartate Amino 150 #H Transf (AST/SGOT) Alanine 144 H Aminotransferase (AL T/SGPT) Alkaline Phosphatase 236 H Total Protein 7.9 Albumin 4.1 Globulin 3.80 H Albumin/Globulin 1.07 Ratio Vitamin D 45.5 1,25-Dihydroxy Bedside Glucose 181 Medications Medication Current Medications Aspirin (Halfprin) 81 mg DAILY PO Last administered on 05/04/19at 09:25; Admin Dose 81 MG; Start 05/03/19 at 09:00 Atorvastatin Calcium (Lipitor) 20 mg DAILY@2100 PO Last administered on 05/03/19at 22:27; Admin Dose 20 MG; Start 05/03/19 at 21:00 Folic Acid (Folic Acid) 1 mg DAILY PO Last administered on 05/04/19at 09:24; Admin Dose 1 MG; Start 05/03/19 at 09:00 Hydralazine HCl (Apresoline) 25 mg TID PO Last administered on 05/04/19at 09:26; Admin Dose 25 MG; Start 05/03/19 at 09:00 Isosorbide Dinitrate (Isordil) 20 mg TID PO Last administered on 05/04/19at 09:25; Admin Dose 20 MG; Start 05/03/19 at 09:00 Sodium Chloride 1,000 ml @ 40 mls/hr Q24H IV Last administered on 05/04/19at 05:26; Admin Dose 40 MLS/HR; Start 05/03/19 at 05:00 Insulin Aspart (Novolog Insulin Pen) NOVOLOG *MILD* ALGORI... Q4 SC Last administered on 05/04/19at 09:36; Admin Dose 2 UNIT; Start 05/03/19 at 05:00 IV Flush (NS 3 ml) 3 ml PER PROTOCOL IV ; Start 05/03/19 at 05:00 Ondansetron HCl (Zofran Inj) 4 mg Q4 PRN IV NAUSEA/VOMITING; Start 05/03/19 at 05:00 Acetaminophen (Tylenol Tab) 650 mg Q6H PRN PO .PAIN 1-3 OR TEMP; Start 05/03/19 at 05:00 Morphine Sulfate (morphine) 2 mg Q4H PRN IV .PAIN 7-10; Start 05/03/19 at 05:00 Docusate Sodium (Colace) 100 mg Q12H PRN PO .CONSTIPATION; Start 05/03/19 at 05:00 Bisacodyl (Dulcolax) 5 mg DAILY PRN PO .CONSTIPATION; Start 05/03/19 at 05:00 Piperacillin Sod/ Tazobactam Sod 50 ml @ 100 mls/hr Q8 IVPB Last administered on 05/04/19at 05:23; Admin Dose 100 MLS/HR; Start 05/03/19 at 06:00 Miscellaneous Information 1 ea NOTE XX ; Start 05/03/19 at 05:30 Glucose (Glutose) 15 gm Q15M PRN PO DECREASED GLUCOSE; Start 05/03/19 at 05:30 Glucose (Glutose) 22.5 gm Q15M PRN PO DECREASED GLUCOSE; Start 05/03/19 at 05:30 Dextrose (D50w Syringe) 25 ml Q15M PRN IV DECREASED GLUCOSE; Start 05/03/19 at 05:30 Dextrose (D50w Syringe) 50 ml Q15M PRN IV DECREASED GLUCOSE; Start 05/03/19 at 05:30 Glucagon (Glucagen) 1 mg Q15M PRN IM DECREASED GLUCOSE; Start 05/03/19 at 05:30 Glucose (Glutose) 15 gm Q15M PRN BUCCAL DECREASED GLUCOSE; Start 05/03/19 at 05:30 Clopidogrel Bisulfate (plaVIX) 75 mg DAILY PO Last administered on 05/04/19at 09:24; Admin Dose 75 MG; Start 05/03/19 at 14:30 Metoprolol Tartrate (Lopressor) 50 mg BID PO Last administered on 05/04/19at 09:26; Admin Dose 50 MG; Start 05/03/19 at 21:00 Hydralazine HCl (Apresoline) 25 mg Q4H PRN IV ELEVATED BLOOD PRESSURE; Start 05/03/19 at 17:00 DEVORA SNIDER NP May 04, 2019 11:49
--- NOTE | 2019-05-04 13:09 | CONS ---
Assessment/Plan Assessment/Plan Assessment/Plan (Daily) Assessment Preoperative risk assessment Abdominal pain CAD Hypertension Diabetes End-stage renal disease on hemodialysis Plan: patient with coronary angiogram in [facility] with 40% LAD stenosis and no indication for intervention At intermediate risk of cardiac events amid abdominal surgery however the b enefits of the surgery may well outweigh the risk. Ok to stop DAPT in presence of surgery Consultation Date/Type/Reason Admit Date/Time May 03, 2019 at 04:48 Initial Consult Date Type of Consult Cardiology Date/Time of Note DATE: 05/04/19 TIME: 13:07 24 HR Interval Summary Free Text/Dictation no chest pain, no sob, no palpitations Detailed Summary Respiratory: no complaints Cardiovascular: no complaints Gastrointestinal: no complaints Musculoskeletal: no complaints Skin: no complaints Neurologic: no complaints Endocrine: no complaints Exam/Review of Systems Vital Signs Vitals Vital Signs Date Temp Pulse Resp B/P (MAP) Pulse Ox O2 O2 Flow FiO2 Time Delivery Rate 05/04/19 98.2 80 16 102/67 97 Room Air 11:18 (79) Intake and Output 05/03/19 05/03/19 05/04/19 1515:00 23:00 07:00 IntakeIntake Total 600 ml 1790 ml OutputOutput Total 2700 ml BalanceBalance -2100 ml 1790 ml Exam Constitutional: alert, oriented Head: normocephalic, atraumatic Neck: supple Respiratory: clear to auscultation Cardiovascular: regular rate and rhythm Gastrointestinal: soft Musculoskeletal: nl extremities to inspection Labs Result Diagram: 05/04/19 0530 05/04/19 0530 Results 24hrs Laboratory Tests Test 05/03/19 13:18 05/03/19 22:19 05/04/19 01:18 05/04/19 05:24 Bedside Glucose 103 107 157 105 Test 05/04/19 05:27 05/04/19 05:30 05/04/19 09:20 05/04/19 12:50 Hemoglobin A1c 7.9 H Triglycerides Level 47 Cholesterol Level 98 L LDL Cholesterol, 30 Calculated HDL Cholesterol 59 Cholesterol/HDL 1.6 Ratio White Blood Count 5.5 # Red Blood Count 4.80 Hemoglobin 14.6 Hematocrit 44.0 Mean Corpuscular 91.7 Volume Mean Corpuscular 30.4 Hemoglobin Mean Corpuscular 33.2 Hemoglobin Concent Red Cell 14.5 Distribution Width Platelet Count 210 Mean Platelet Volume 10.5 H Immature 0.400 Granulocytes % Neutrophils % 64.7 Lymphocytes % 19.9 Monocytes % 9.6 Eosinophils % 4.7 Basophils % 0.7 Nucleated Red Blood 0.0 Cells % Immature 0.020 Granulocytes # Neutrophils # 3.6 Lymphocytes # 1.1 Monocytes # 0.5 Eosinophils # 0.3 Basophils # 0.0 Nucleated Red Blood 0.0 Cells # Sodium Level 142 Potassium Level 5.0 Chloride Level 98 Carbon Dioxide Level 30 Anion Gap 14 H Blood Urea Nitrogen 36 #H Creatinine 7.70 H Est Glomerular 7 L Filtrat Rate mL/min Glucose Level 120 # Calcium Level 9.6 Phosphorus Level 5.9 H Magnesium Level 2.3 Total Bilirubin 1.9 H Direct Bilirubin 1.00 #H Indirect Bilirubin 0.9 Aspartate Amino 150 #H Transf (AST/SGOT) Alanine 144 H Aminotransferase (AL T/SGPT) Alkaline Phosphatase 236 H Total Protein 7.9 Albumin 4.1 Globulin 3.80 H Albumin/Globulin 1.07 Ratio Vitamin D 45.5 1,25-Dihydroxy Bedside Glucose 181 94 Medications Medications Current Medications Aspirin (Halfprin) 81 mg DAILY PO Last administered on 05/04/19 09:25; Admin Dose 81 MG; Start 05/03/19 at 09:00 Atorvastatin Calcium (Lipitor) 20 mg DAILY@2100 PO Last administered on 05/03/19 22:27; Admin Dose 20 MG; Start 05/03/19 at 21:00; Status Hold Folic Acid (Folic Acid) 1 mg DAILY PO Last administered on 05/04/19 09:24; Admin Dose 1 MG; Start 05/03/19 at 09:00 Hydralazine HCl (Apresoline) 25 mg TID PO Last administered on 05/04/19 09:26; Admin Dose 25 MG; Start 05/03/19 at 09:00 Isosorbide Dinitrate (Isordil) 20 mg TID PO Last administered on 05/04/19 09:25; Admin Dose 20 MG; Start 05/03/19 at 09:00 Sodium Chloride 1,000 ml @ 40 mls/hr Q24H IV Last administered on 05/04/19 05:26; Admin Dose 40 MLS/HR; Start 05/03/19 at 05:00 Insulin Aspart (Novolog Insulin Pen) NOVOLOG *MILD* ALGORI... Q4 SC Last administered on 05/04/19at 09:36; Admin Dose 2 UNIT; Start 05/03/19 at 05:00 IV Flush (NS 3 ml) 3 ml PER PROTOCOL IV ; Start 05/03/19 at 05:00 Ondansetron HCl (Zofran Inj) 4 mg Q4 PRN IV NAUSEA/VOMITING; Start 05/03/19 at 05:00 Acetaminophen (Tylenol Tab) 650 mg Q6H PRN PO .PAIN 1-3 OR TEMP; Start 05/03/19 at 05:00 Morphine Sulfate (morphine) 2 mg Q4H PRN IV .PAIN 7-10; Start 05/03/19 at 05:00 Docusate Sodium (Colace) 100 mg Q12H PRN PO .CONSTIPATION; Start 05/03/19 at 05:00 Bisacodyl (Dulcolax) 5 mg DAILY PRN PO .CONSTIPATION; Start 05/03/19 at 05:00 Piperacillin Sod/ Tazobactam Sod 50 ml @ 100 mls/hr Q8 IVPB Last administered on 05/04/19at 05:23; Admin Dose 100 MLS/HR; Start 05/03/19 at 06:00 Miscellaneous Information 1 ea NOTE XX ; Start 05/03/19 at 05:30 Glucose (Glutose) 15 gm Q15M PRN PO DECREASED GLUCOSE; Start 05/03/19 at 05:30 Glucose (Glutose) 22.5 gm Q15M PRN PO DECREASED GLUCOSE; Start 05/03/19 at 05:30 Dextrose (D50w Syringe) 25 ml Q15M PRN IV DECREASED GLUCOSE; Start 05/03/19 at 05:30 Dextrose (D50w Syringe) 50 ml Q15M PRN IV DECREASED GLUCOSE; Start 05/03/19 at 05:30 Glucagon (Glucagen) 1 mg Q15M PRN IM DECREASED GLUCOSE; Start 05/03/19 at 05:30 Glucose (Glutose) 15 gm Q15M PRN BUCCAL DECREASED GLUCOSE; Start 05/03/19 at 05:30 Clopidogrel Bisulfate (plaVIX) 75 mg DAILY PO Last administered on 05/04/19at 09:24; Admin Dose 75 MG; Start 05/03/19 at 14:30 Metoprolol Tartrate (Lopressor) 50 mg BID PO Last administered on 05/04/19at 09:26; Admin Dose 50 MG; Start 05/03/19 at 21:00 Hydralazine HCl (Apresoline) 25 mg Q4H PRN IV ELEVATED BLOOD PRESSURE; Start 05/03/19 at 17:00 [address] MATA MD May 04, 2019 13:09
--- NOTE | 2019-05-04 14:38 | CONS ---
Assessment/Plan Assessment/Plan Assessment/Plan (Daily) Assessment: Right upper quadrant abdominal pain Nausea/vomiting (hematemesis-resolved) Transaminitis Hyperbilirubinemia Cholelithiasis/rule out acute cholecystitis and choledocholithiasis Nonvisualized CBD and gallbladder on HIDA scan Diabetes mellitus History of CT 2 months ago Hypertension End-stage renal diseaseon dialysis Plan: MRCP to rule out choledocholithiasis Hepatitis serology Autoimmune panel Pantoprazole twice daily Monitor LFTs EGD/colonoscopy as an outpatient Patient seen in collaboration with Dr. Armando Consultation Date/Type/Reason Admit Date/Time May 03, 2019 at 04:48 Date of Consultation: May 04, 2019 Type of Consult GI Reason for Consultation Cholelithiasis/rule out choledocholithiasis Date/Time of Note DATE: 05/04/19 TIME: 14:24 Hx of Present Illness This is a 58-year-old male with a history of diabetes mellitus, stroke CT 2 months ago, hypertension, dyslipidemia and end-stage renal disease on hemodialysis who was admitted for right upper quadrant abdominal pain, nausea and vomiting. Patient states his symptoms began on with moderate right upper quadrant pain nausea and vomiting small streaks of blood. Patient denies drinking alcohol or taking NSAIDs. He denies any history of EGD or colonoscopy. This is the first time he presented with these symptoms. Transaminitis and hyperbilirubinemia are noted on the labs. Imaging shows cholelithiasis with mild gallbladder thickening. HIDA scan shows nonvisualized CBD and gallbladder suggestive of cholecystitis and possible CBD stone. MRCP has been ordered. Further recommendations depend on the results of MRCP. We will continue observation. Gastrointestinal: no complaints (See HPI) Past Medical History End-stage kidney disease on dialysis, hypertension, diabetes mellitus, dyslipidemia Medical History: congestive heart failure, coronary artery disease, diabetes, hypertension, other (End-stage renal disease on dialysis diabetic retinopathy) Home Meds Reported Medications Metoprolol Tartrate* (Lopressor*) 25 Mg Tab, 25 MG PO BID, TAB 07/28/14 Losartan Potassium* (Losartan Potassium*) 50 Mg Tablet, 50 MG PO DAILY, TAB 07/28/14 Isosorbide Dinitrate* (Isosorbide Dinitrate*) 20 Mg Tablet, 20 MG PO TID, TAB 07/28/14 Hydralazine Hcl* (Hydralazine Hcl*) 25 Mg Tab, 25 MG PO TID, TAB 07/28/14 Folic Acid* (Folic Acid*) 1 Mg Tablet, 1 MG PO DAILY, TAB 07/28/14 Aspirin* (Aspirin* EC) 81 Mg Tablet.dr, 81 MG PO DAILY, TAB 07/28/14 Atorvastatin Calcium* (Atorvastatin Calcium*) 20 Mg Tablet, 20 MG PO DAILY for HIGH CHOLESTEROL 02/15/14 Pioglitazone Hcl* (Actos*) 30 Mg Tablet, 30 MG PO DAILY 02/15/14 Discontinued Reported Medications Multivit/Ca Carb/B Cmplx/Fa* (Petra-Naga*) 1 Tab Tab, 1 TAB PO DAILY, TAB 07/28/14 Metoclopramide* (Reglan*) 5 Mg Tablet, 5 MG PO TID PRN for GERD, TAB 07/28/14 Furosemide* (Lasix*) 40 Mg Tablet, 40 MG PO QAM 02/15/14 Medications Current Medications Aspirin (Halfprin) 81 mg DAILY PO Last administered on 05/04/19 09:25; Admin Dose 81 MG; Start 05/03/19 at 09:00 Atorvastatin Calcium (Lipitor) 20 mg DAILY@2100 PO Last administered on 05/03/19 22:27; Admin Dose 20 MG; Start 05/03/19 at 21:00; Status Hold Folic Acid (Folic Acid) 1 mg DAILY PO Last administered on 05/04/19 09:24; Admin Dose 1 MG; Start 05/03/19 at 09:00 Hydralazine HCl (Apresoline) 25 mg TID PO Last administered on 05/04/19 09:26; Admin Dose 25 MG; Start 05/03/19 at 09:00 Isosorbide Dinitrate (Isordil) 20 mg TID PO Last administered on 05/04/19 09:25; Admin Dose 20 MG; Start 05/03/19 at 09:00 Sodium Chloride 1,000 ml @ 40 mls/hr Q24H IV Last administered on 05/04/19 05:26; Admin Dose 40 MLS/HR; Start 05/03/19 at 05:00 Insulin Aspart (Novolog Insulin Pen) NOVOLOG *MILD* ALGORI... Q4 SC Last administered on 05/04/19 09:36; Admin Dose 2 UNIT; Start 05/03/19 at 05:00 IV Flush (NS 3 ml) 3 ml PER PROTOCOL IV ; Start 05/03/19 at 05:00 Ondansetron HCl (Zofran Inj) 4 mg Q4 PRN IV NAUSEA/VOMITING; Start 05/03/19 at 05:00 Acetaminophen (Tylenol Tab) 650 mg Q6H PRN PO .PAIN 1-3 OR TEMP; Start 05/03/19 at 05:00 Morphine Sulfate (morphine) 2 mg Q4H PRN IV .PAIN 7-10; Start 05/03/19 at 05:00 Docusate Sodium (Colace) 100 mg Q12H PRN PO .CONSTIPATION; Start 05/03/19 at 05:00 Bisacodyl (Dulcolax) 5 mg DAILY PRN PO .CONSTIPATION; Start 05/03/19 at 05:00 Piperacillin Sod/ Tazobactam Sod 50 ml @ 100 mls/hr Q8 IVPB Last administered on 05/04/19at 14:21; Admin Dose 100 MLS/HR; Start 05/03/19 at 06:00 Miscellaneous Information 1 ea NOTE XX ; Start 05/03/19 at 05:30 Glucose (Glutose) 15 gm Q15M PRN PO DECREASED GLUCOSE; Start 05/03/19 at 05:30 Glucose (Glutose) 22.5 gm Q15M PRN PO DECREASED GLUCOSE; Start 05/03/19 at 05:30 Dextrose (D50w Syringe) 25 ml Q15M PRN IV DECREASED GLUCOSE; Start 05/03/19 at 05:30 Dextrose (D50w Syringe) 50 ml Q15M PRN IV DECREASED GLUCOSE; Start 05/03/19 at 05:30 Glucagon (Glucagen) 1 mg Q15M PRN IM DECREASED GLUCOSE; Start 05/03/19 at 05:30 Glucose (Glutose) 15 gm Q15M PRN BUCCAL DECREASED GLUCOSE; Start 05/03/19 at 05:30 Clopidogrel Bisulfate (plaVIX) 75 mg DAILY PO Last administered on 05/04/19at 09:24; Admin Dose 75 MG; Start 05/03/19 at 14:30 Metoprolol Tartrate (Lopressor) 50 mg BID PO Last administered on 05/04/19at 09:26; Admin Dose 50 MG; Start 05/03/19 at 21:00 Hydralazine HCl (Apresoline) 25 mg Q4H PRN IV ELEVATED BLOOD PRESSURE; Start 05/03/19 at 17:00 Allergies: Coded Allergies: No Known Allergy (Unverified , 05/03/19) Past Surgical History Past Surgical Hx: no surgical history, other Social History Alcohol Use: none Smoking Status: Never smoker Drug Use: none Exam/Review of Systems Exam Vitals Vital Signs Date Temp Pulse Resp B/P (MAP) Pulse Ox O2 O2 Flow FiO2 Time Delivery Rate 05/04/19 98.2 80 16 102/67 97 Room Air 11:18 (79) Intake and Output 05/03/19 05/03/19 05/04/19 1515:00 23:00 07:00 IntakeIntake Total 600 ml 1790 ml OutputOutput Total 2700 ml BalanceBalance -2100 ml 1790 ml Exam PHYSICAL EXAMINATION: GENERAL: Well developed, well nourished, alert & oriented x 3, in no acute distress SKIN: No lesions, no stigmata chronic liver disease, no evidence of bleeding diathesis LYMPHATIC: No palpable lymphadenopathy. HEAD: Normocephalic, atraumatic, no tenderness. EYES: Pupils equal reactive to light and accommodation, right eye cataract, full extraocular movements, sclera clear, non-icteric, no discharge. EARS/NOSE AND THROAT: Ears normal, nose normal, oropharynx normal, oral membranes well hydrated without lesions. NECK: Supple, no masses, thyroid normal, JVP within normal limits, carotids normal without bruits. CHEST: Inspection within normal limits. CARDIOVASCULAR: Heart: Regular rate and rhythm, no murmurs, gallops or rubs. Peripheral pulses present within normal limits, no cyanosis, clubbing or edemas. No pulsatile abdominal mass RESPIRATORY: Lungs clear to auscultation and percussion, no wheezing, no rubs GASTROINTESTINAL AND LIVER: Abdomen: Soft, right upper quadrant and right lower quadrant abdominal tenderness, non-distended, no hernias, no masses, no organomegaly, no ascites, no guarding, no rebound tenderness, normoactive bowel sounds. Rectal: Deferred. GENITOURINARY: [Male genitalia within normal limits. EXTREMITIES: No cyanosis, clubbing or edema. Results Result Diagram: 05/04/19 0530 05/04/19 0530 Results 24hrs Laboratory Tests Test 05/03/19 22:19 05/04/19 01:18 05/04/19 05:24 05/04/19 05:27 Bedside Glucose 107 157 105 Hemoglobin A1c 7.9 H Triglycerides Level 47 Cholesterol Level 98 L LDL Cholesterol, 30 Calculated HDL Cholesterol 59 Cholesterol/HDL 1.6 Ratio Test 05/04/19 05:30 05/04/19 09:20 05/04/19 12:50 White Blood Count 5.5 # Red Blood Count 4.80 Hemoglobin 14.6 Hematocrit 44.0 Mean Corpuscular 91.7 Volume Mean Corpuscular 30.4 Hemoglobin Mean Corpuscular 33.2 Hemoglobin Concent Red Cell 14.5 Distribution Width Platelet Count 210 Mean Platelet Volume 10.5 H Immature 0.400 Granulocytes % Neutrophils % 64.7 Lymphocytes % 19.9 Monocytes % 9.6 Eosinophils % 4.7 Basophils % 0.7 Nucleated Red Blood 0.0 Cells % Immature 0.020 Granulocytes # Neutrophils # 3.6 Lymphocytes # 1.1 Monocytes # 0.5 Eosinophils # 0.3 Basophils # 0.0 Nucleated Red Blood 0.0 Cells # Sodium Level 142 Potassium Level 5.0 Chloride Level 98 Carbon Dioxide Level 30 Anion Gap 14 H Blood Urea Nitrogen 36 #H Creatinine 7.70 H Est Glomerular 7 L Filtrat Rate mL/min Glucose Level 120 # Calcium Level 9.6 Phosphorus Level 5.9 H Magnesium Level 2.3 Total Bilirubin 1.9 H Direct Bilirubin 1.00 #H Indirect Bilirubin 0.9 Aspartate Amino 150 #H Transf (AST/SGOT) Alanine 144 H Aminotransferase (AL T/SGPT) Alkaline Phosphatase 236 H Total Protein 7.9 Albumin 4.1 Globulin 3.80 H Albumin/Globulin 1.07 Ratio Vitamin D 45.5 1,25-Dihydroxy Bedside Glucose 181 94 Medications Medication Current Medications Aspirin (Halfprin) 81 mg DAILY PO Last administered on 05/04/19at 09:25; Admin Dose 81 MG; Start 05/03/19 at 09:00 Atorvastatin Calcium (Lipitor) 20 mg DAILY@2100 PO Last administered on 05/03/19at 22:27; Admin Dose 20 MG; Start 05/03/19 at 21:00; Status Hold Folic Acid (Folic Acid) 1 mg DAILY PO Last administered on 05/04/19at 09:24; Admin Dose 1 MG; Start 05/03/19 at 09:00 Hydralazine HCl (Apresoline) 25 mg TID PO Last administered on 05/04/19at 09:26; Admin Dose 25 MG; Start 05/03/19 at 09:00 Isosorbide Dinitrate (Isordil) 20 mg TID PO Last administered on 05/04/19at 09:25; Admin Dose 20 MG; Start 05/03/19 at 09:00 Sodium Chloride 1,000 ml @ 40 mls/hr Q24H IV Last administered on 05/04/19at 05:26; Admin Dose 40 MLS/HR; Start 05/03/19 at 05:00 Insulin Aspart (Novolog Insulin Pen) NOVOLOG *MILD* ALGORI... Q4 SC Last administered on 05/04/19at 09:36; Admin Dose 2 UNIT; Start 05/03/19 at 05:00 IV Flush (NS 3 ml) 3 ml PER PROTOCOL IV ; Start 05/03/19 at 05:00 Ondansetron HCl (Zofran Inj) 4 mg Q4 PRN IV NAUSEA/VOMITING; Start 05/03/19 at 05:00 Acetaminophen (Tylenol Tab) 650 mg Q6H PRN PO .PAIN 1-3 OR TEMP; Start 05/03/19 at 05:00 Morphine Sulfate (morphine) 2 mg Q4H PRN IV .PAIN 7-10; Start 05/03/19 at 05:00 Docusate Sodium (Colace) 100 mg Q12H PRN PO .CONSTIPATION; Start 05/03/19 at 05:00 Bisacodyl (Dulcolax) 5 mg DAILY PRN PO .CONSTIPATION; Start 05/03/19 at 05:00 Piperacillin Sod/ Tazobactam Sod 50 ml @ 100 mls/hr Q8 IVPB Last administered on 05/04/19at 14:21; Admin Dose 100 MLS/HR; Start 05/03/19 at 06:00 Miscellaneous Information 1 ea NOTE XX ; Start 05/03/19 at 05:30 Glucose (Glutose) 15 gm Q15M PRN PO DECREASED GLUCOSE; Start 05/03/19 at 05:30 Glucose (Glutose) 22.5 gm Q15M PRN PO DECREASED GLUCOSE; Start 05/03/19 at 05:30 Dextrose (D50w Syringe) 25 ml Q15M PRN IV DECREASED GLUCOSE; Start 05/03/19 at 05:30 Dextrose (D50w Syringe) 50 ml Q15M PRN IV DECREASED GLUCOSE; Start 05/03/19 at 05:30 Glucagon (Glucagen) 1 mg Q15M PRN IM DECREASED GLUCOSE; Start 05/03/19 at 05:30 Glucose (Glutose) 15 gm Q15M PRN BUCCAL DECREASED GLUCOSE; Start 05/03/19 at 05:30 Clopidogrel Bisulfate (plaVIX) 75 mg DAILY PO Last administered on 05/04/19at 09:24; Admin Dose 75 MG; Start 05/03/19 at 14:30 Metoprolol Tartrate (Lopressor) 50 mg BID PO Last administered on 05/04/19at 09:26; Admin Dose 50 MG; Start 05/03/19 at 21:00 Hydralazine HCl (Apresoline) 25 mg Q4H PRN IV ELEVATED BLOOD PRESSURE; Start 05/03/19 at 17:00 BERNABE MENDOZA NP May 04, 2019 14:35
--- NOTE | 2019-05-04 15:06 | CONS ---
Assessment/Plan Assessment/Plan Hospital Course (Demo Recall) 1. end-stage renal disease: Patient is on hemodialysis Monday. 2. Hyperkalemia due to ESRD 3. History of systolic CHF 4. Diabetes mellitus type II 5. Hypertension, uncontrolled 6. Cholelithiasis and mild gallbladder wall thickening. Assessment/Plan (Daily) -Avoid nephrotoxic agents. -phos level is elevaTED , start on Renvella - Continue home meds -C/W HD Consultation Date/Type/Reason Admit Date/Time May 03, 2019 at 04:48 Initial Consult Date 05/03/2019 Type of Consult nephrology Date/Time of Note DATE: 05/04/19 TIME: 15:06 24 HR Interval Summary Free Text/Dictation abdominal pain Exam/Review of Systems Exam Vitals Vital Signs Date Temp Pulse Resp B/P (MAP) Pulse Ox O2 O2 Flow FiO2 Time Delivery Rate 05/04/19 98.2 80 16 102/67 97 Room Air 11:18 (79) Intake and Output 05/03/19 05/03/19 05/04/19 1515:00 23:00 07:00 IntakeIntake Total 600 ml 1790 ml OutputOutput Total 2700 ml BalanceBalance -2100 ml 1790 ml Exam left arm AV fistula Constitutional: alert, oriented Respiratory: clear to auscultation Cardiovascular: regular rate and rhythm Gastrointestinal: soft, rebound or guarding (ruq) Results Result Diagram: 05/04/19 0530 05/04/19 0530 Results 24hrs Laboratory Tests Test 05/03/19 22:19 05/04/19 01:18 05/04/19 05:24 05/04/19 05:27 Bedside Glucose 107 157 105 Hemoglobin A1c 7.9 H Triglycerides Level 47 Cholesterol Level 98 L LDL Cholesterol, 30 Calculated HDL Cholesterol 59 Cholesterol/HDL 1.6 Ratio Test 05/04/19 05:30 05/04/19 09:20 05/04/19 12:50 White Blood Count 5.5 # Red Blood Count 4.80 Hemoglobin 14.6 Hematocrit 44.0 Mean Corpuscular 91.7 Volume Mean Corpuscular 30.4 Hemoglobin Mean Corpuscular 33.2 Hemoglobin Concent Red Cell 14.5 Distribution Width Platelet Count 210 Mean Platelet Volume 10.5 H Immature 0.400 Granulocytes % Neutrophils % 64.7 Lymphocytes % 19.9 Monocytes % 9.6 Eosinophils % 4.7 Basophils % 0.7 Nucleated Red Blood 0.0 Cells % Immature 0.020 Granulocytes # Neutrophils # 3.6 Lymphocytes # 1.1 Monocytes # 0.5 Eosinophils # 0.3 Basophils # 0.0 Nucleated Red Blood 0.0 Cells # Sodium Level 142 Potassium Level 5.0 Chloride Level 98 Carbon Dioxide Level 30 Anion Gap 14 H Blood Urea Nitrogen 36 #H Creatinine 7.70 H Est Glomerular 7 L Filtrat Rate mL/min Glucose Level 120 # Calcium Level 9.6 Phosphorus Level 5.9 H Magnesium Level 2.3 Total Bilirubin 1.9 H Direct Bilirubin 1.00 #H Indirect Bilirubin 0.9 Aspartate Amino 150 #H Transf (AST/SGOT) Alanine 144 H Aminotransferase (AL T/SGPT) Alkaline Phosphatase 236 H Total Protein 7.9 Albumin 4.1 Globulin 3.80 H Albumin/Globulin 1.07 Ratio Vitamin D 45.5 1,25-Dihydroxy Bedside Glucose 181 94 Medications Medication Current Medications Aspirin (Halfprin) 81 mg DAILY PO Last administered on 05/04/19 09:25; Admin Dose 81 MG; Start 05/03/19 at 09:00 Atorvastatin Calcium (Lipitor) 20 mg DAILY@2100 PO Last administered on 05/03/19 22:27; Admin Dose 20 MG; Start 05/03/19 at 21:00; Status Hold Folic Acid (Folic Acid) 1 mg DAILY PO Last administered on 05/04/19 09:24; Admin Dose 1 MG; Start 05/03/19 at 09:00 Hydralazine HCl (Apresoline) 25 mg TID PO Last administered on 05/04/19 09:26; Admin Dose 25 MG; Start 05/03/19 at 09:00 Isosorbide Dinitrate (Isordil) 20 mg TID PO Last administered on 05/04/19 09:25; Admin Dose 20 MG; Start 05/03/19 at 09:00 Sodium Chloride 1,000 ml @ 40 mls/hr Q24H IV Last administered on 05/04/19 05:26; Admin Dose 40 MLS/HR; Start 05/03/19 at 05:00 Insulin Aspart (Novolog Insulin Pen) NOVOLOG *MILD* ALGORI... Q4 SC Last administered on 05/04/19 09:36; Admin Dose 2 UNIT; Start 05/03/19 at 05:00 IV Flush (NS 3 ml) 3 ml PER PROTOCOL IV ; Start 05/03/19 at 05:00 Ondansetron HCl (Zofran Inj) 4 mg Q4 PRN IV NAUSEA/VOMITING; Start 05/03/19 at 05:00 Acetaminophen (Tylenol Tab) 650 mg Q6H PRN PO .PAIN 1-3 OR TEMP; Start 05/03/19 at 05:00 Morphine Sulfate (morphine) 2 mg Q4H PRN IV .PAIN 7-10; Start 05/03/19 at 05:00 Docusate Sodium (Colace) 100 mg Q12H PRN PO .CONSTIPATION; Start 05/03/19 at 05:00 Bisacodyl (Dulcolax) 5 mg DAILY PRN PO .CONSTIPATION; Start 05/03/19 at 05:00 Piperacillin Sod/ Tazobactam Sod 50 ml @ 100 mls/hr Q8 IVPB Last administered on 05/04/19at 14:21; Admin Dose 100 MLS/HR; Start 05/03/19 at 06:00 Miscellaneous Information 1 ea NOTE XX ; Start 05/03/19 at 05:30 Glucose (Glutose) 15 gm Q15M PRN PO DECREASED GLUCOSE; Start 05/03/19 at 05:30 Glucose (Glutose) 22.5 gm Q15M PRN PO DECREASED GLUCOSE; Start 05/03/19 at 05:30 Dextrose (D50w Syringe) 25 ml Q15M PRN IV DECREASED GLUCOSE; Start 05/03/19 at 05:30 Dextrose (D50w Syringe) 50 ml Q15M PRN IV DECREASED GLUCOSE; Start 05/03/19 at 05:30 Glucagon (Glucagen) 1 mg Q15M PRN IM DECREASED GLUCOSE; Start 05/03/19 at 05:30 Glucose (Glutose) 15 gm Q15M PRN BUCCAL DECREASED GLUCOSE; Start 05/03/19 at 05:30 Clopidogrel Bisulfate (plaVIX) 75 mg DAILY PO Last administered on 05/04/19at 09:24; Admin Dose 75 MG; Start 05/03/19 at 14:30 Metoprolol Tartrate (Lopressor) 50 mg BID PO Last administered on 05/04/19at 09:26; Admin Dose 50 MG; Start 05/03/19 at 21:00 Hydralazine HCl (Apresoline) 25 mg Q4H PRN IV ELEVATED BLOOD PRESSURE; Start 05/03/19 at 17:00 Pantoprazole (Protonix Tab) 40 mg BID@06,18 PO ; Start 05/04/19 at 18:00 Sucralfate (Carafate Susp) 1 gm QID GTB ; Start 05/04/19 at 17:00 LEWIS LOJA May 04, 2019 15:06
[2019-05-04] MEDS: PANTOPRAZOLE (EC) 40 MG TAB PO SCH (17:40)
[2019-05-04] MEDS: SEVELAMER CARBONATE 800 MG TABLET PO SCH (17:40)
[2019-05-04] MEDS: SUCRALFATE (100 MG/ML) 10ML CUP GTB SCH ×2 (17:40→20:08)
[2019-05-04 19:48] VITALS: BP 184/82; PULSE 77; RESP 20
[2019-05-04 23:30] VITALS: BP 148/68; PULSE 61; RESP 20
[2019-05-05] VITALS (18 sets, daily range): BP systolic 95–181; BP diastolic 53–87; PULSE 70–89; RESP 16–18
[2019-05-05] MEDS ORDERED: hydrALAzine 20 MG INJ IV PRN (00:30)
[2019-05-05] MEDS: INSULIN ASPART [NOVOLOG] 3 ML PEN SC SCH ×4 (01:00→12:36)
[2019-05-05] MEDS: PIPER-TAZO 2.25 GM (PMX) 50 ML IVPB SCH ×2 (05:46→13:59)
[2019-05-05] MEDS: PANTOPRAZOLE (EC) 40 MG TAB PO SCH (05:56)
[2019-05-05] MEDS: SEVELAMER CARBONATE 800 MG TABLET PO SCH ×2 (08:20→12:48)
[2019-05-05] MEDS: FOLIC ACID 1 MG TAB PO SCH (08:20)
[2019-05-05] MEDS: ASPIRIN (EC) 81 MG TAB PO SCH (08:20)
[2019-05-05] MEDS: ISOSORBIDE DINITRATE 20 MG TAB PO SCH ×2 (08:20→12:47)
[2019-05-05] MEDS: METOPROLOL 50 MG TAB PO SCH (08:21)
[2019-05-05] MEDS: CLOPIDOGREL 75 MG TAB PO SCH (08:21)
[2019-05-05] MEDS: SUCRALFATE (100 MG/ML) 10ML CUP GTB SCH ×2 (08:22→12:47)
--- NOTE | 2019-05-05 10:27 | PDOCDIS ---
Discharge Instructions CONDITION [id number] Patient Condition: [id number] Stable HOME CARE INSTRUCTIONS: [id number] Special Diet: [id number] Low cholesterol, low carbohydrate, low potassium diet. FOLLOW UP/APPOINTMENTS Follow-up Plan Follow-up with your primary care physician at the earliest. OTHER ORDERS: Other Orders: 1. Follow a low-cholesterol, low carbohydrate, low potassium diet. 2. Follow-up with your primary care physician at the earliest. Have your primary care physician arrange for outpatient surgical evaluation for elective removal of the gallbladder. 3. Resume home medications. 4. Follow-up with your hemodialysis clinic as scheduled. 5. Resume activities as tolerated. 6. Please go to the nearest emergency room if you have significant abdominal pain, persistent nausea/vomiting, persistent fevers, or any other unusual signs/symptoms. DEVORA SNIDER NP May 05, 2019 10:27
--- NOTE | 2019-05-05 10:33 | DS ---
Date/Time of Note Date/Time of Note DATE: 05/05/19 TIME: 10:27 Discharge Summary Admission/Discharge Info Admit Date/Time May 03, 2019 at 04:48 Discharge Date/Time Discharge Diagnosis 1. Symptomatic cholelithiasis. 2. Transaminitis with hyperbilirubinemia. 3. End-stage renal disease on hemodialysis. Tuesdays//Monday. 4. Reported history of CAD. S/P PCI at [facility] (details unclear). 5. Hypertension. 6. Diabetes mellitus. 7. Dyslipidemia. 8. Right eye blindness. Patient Condition: Stable Consults 1. Gulshan Westbrook MD, General Surgery. 2. Keila Zimmer MD, Nephrology. 3. Karen Armando MD, Gastroenterology. 4. Pravin Seymour DO, Cardiology. Procedures HIDA Scan IMPRESSION: Nonvisualization of the gallbladder, suspicious for an obstructed cystic duct. Nonvisualization of the CBD and small bowel, suspicious for a possible CBD obstruction. Follow-up MRCP is recommended. MRCP IMPRESSION: 1. The common bile duct is normal in caliber measuring 4 mm and there is no filling defect to confirm choledocholithiasis despite the nuclear medicine findings from 05/03/2019. 2. Cholelithiasis with gallbladder wall thickening and mild pericholecystic infl ammation consistent with acute cholecystitis. 3. Linear right greater than left lower lobe subsegmental atelectasis. 4. Acquired cystic disease of the kidneys with some debris or dependent hemorrhage and a posterior left renal cyst. 2D Echocardiogram Conclusions: Normal left ventricular systolic function. Normal left ventricular cavity size. Mild concentric left ventricular hypertrophy. Ejection fraction is visually estimated at 55 %. Tissue Doppler/Mitral Doppler indices are consistent with impaired relaxation (Stage I diastolic dysfunction). Normal right ventricular size. Normal right ventricular systolic function. No significant valvular stenosis or regurgitation seen. Normal pericardium with no significant pericardial effusion. Hx of Present Illness This is a 58-year-old male with past medical history of hypertension, diabetes mellitus, dyslipidemia, and end-stage renal disease on hemodialysis who presented to the emergency department complaining of right upper quadrant pain vomiting with gallbladder ultrasound showing cholelithiasis and mild gallbladder wall thickening, who was admitted to inpatient setting for further treatment and evaluation. Hospital Course The patient was admitted to inpatient setting. He was kept n.p.o. He was provided with adequate pain control. He was started on empiric antimicrobials for any underlying acute cholecystitis. The patient had evidence of symptomatic cholelithiasis. The patient's gallbladder ultrasound showed cholelithiasis and mild gallbladder wall thickening. The patient underwent a HIDA scan which showed nonvisualization of the gallbladder suspicious for an obstructed cystic duct and nonvisualization of the CBD and small bowel suspicious for a possible CBD obstruction. Consequently, an MRCP was obtained and a gastroenterology consult was obtained. The patient's MRCP was showing no evidence of any choledocholithiasis. Therefore, the patient was started on a clear liquid diet and the patient's diet was advanced to a soft diet without any significant gastrointestinal symptoms. Gastroenterology recommended no need for ERCP since there is no evidence of any choledocholithiasis on MRCP. The patient remained afebrile. He had no underlying leukocytosis. Therefore, a clinical decision was made to discharge this patient home and to follow-up with outpatient surgery and to have elective cholecystectomy done in the near future. However, the patient was instructed to go to the nearest emergency room if he continues to have significant abdominal pain, persistent fevers, persistent nausea/vomiting, increasing jaundice, or any other unusual signs/symptoms. The patient's chronic problems include end-stage renal disease on hemodialysis. The patient was being followed by nephrology during the hospitalization. The patient has a history of underlying hypertension. He was maintained on antihypertensives for the same. He has history of diabetes mellitus. He was maintained on sliding scale insulin during the hospital stay. His hemoglobin A1c was found to be 7.9. The patient has underlying dyslipidemia. His statins were put on hold because of worsening LFTs. The patient was evaluated by cardiology since that he reported a history of CAD and a PCI at a local hospital with details unclear. The patient was put on aspirin and Plavix as per cardiology recommendations. The patient's 2D echocardiogram was showing preserved left ventricular ejection fraction. The patient had a stable hospital course. The patient was cleared by consultants to be discharged. Therefore, the patient will be discharged home, to be followed up with outpatient general surgery at the earliest. Discharge Instructions 1. Follow a low-cholesterol, low carbohydrate, low potassium diet. 2. Follow-up with your primary care physician at the earliest. Have your primary care physician arrange for outpatient surgical evaluation for elective removal of the gallbladder. 3. Resume home medications. 4. Follow-up with your hemodialysis clinic as scheduled. 5. Resume activities as tolerated. 6. Please go to the nearest emergency room if you have significant abdominal pain, persistent nausea/vomiting, persistent fevers, or any other unusual signs/symptoms. The patient verbalized understanding of his discharge instructions. At this time I would like to thank all the consultants for seeing the patient and providing clinical recommendations. The patient was seen in collaboration with Dr. Loomis. Home Meds Active Scripts Clopidogrel Bisulfate (Clopidogrel) 75 Mg Tablet, 75 MG PO DAILY, #30 TAB Prov:DEVORA SNIDER CHANGE ATTENDANT 05/05/19 Reported Medications Metoprolol Tartrate* (Lopressor*) 25 Mg Tab, 25 MG PO BID, TAB 07/28/14 Losartan Potassium* (Losartan Potassium*) 50 Mg Tablet, 50 MG PO DAILY, TAB 07/28/14 Isosorbide Dinitrate* (Isosorbide Dinitrate*) 20 Mg Tablet, 20 MG PO TID, TAB 07/28/14 Hydralazine Hcl* (Hydralazine Hcl*) 25 Mg Tab, 25 MG PO TID, TAB 07/28/14 Folic Acid* (Folic Acid*) 1 Mg Tablet, 1 MG PO DAILY, TAB 07/28/14 Aspirin* (Aspirin* EC) 81 Mg Tablet.dr 81 MG PO DAILY, TAB 07/28/14 Atorvastatin Calcium* (Atorvastatin Calcium*) 20 Mg Tablet, 20 MG PO DAILY for HIGH CHOLESTEROL 02/15/14 Pioglitazone Hcl* (Actos*) 30 Mg Tablet, 30 MG PO DAILY 02/15/14 Discontinued Reported Medications Multivit/Ca Carb/B Cmplx/Fa* (Petra-Naga*) 1 Tab Tab, 1 TAB PO DAILY, TAB 07/28/14 Metoclopramide* (Reglan*) 5 Mg Tablet, 5 MG PO TID PRN for GERD, TAB 07/28/14 Furosemide* (Lasix*) 40 Mg Tablet, 40 MG PO QAM 02/15/14 Follow-up Plan Follow-up with your primary care physician at the earliest. Primary Care Provider Not On Staff Doctor Time spent on discharge: > 30 minutes Pending Labs Laboratory Tests Test 05/04/19 12:50 05/04/19 17:35 05/04/19 20:13 05/05/19 01:05 Bedside 94 123 173 92 Glucose mg/dL (70-220) mg/dL (70-220) mg/dL (70-220) mg/dL (70-220) Test 05/05/19 04:45 05/05/19 04:46 05/05/19 05:04 05/05/19 08:19 Sodium Level 138 mmol/L (135-144 ) Potassium 4.7 Level mmol/L (3.5-5.1 ) Chloride Level 96 mmol/L (97-110) Carbon Dioxide 25 Level mmol/L (21-31) Anion Gap 17 (5-13) Blood Urea 48 mg/dl (7-20) Nitrogen Creatinine 10.08 mg/dl (0.61-1.2 4) Est Glomerular 5 mL/min (>60) Filtrat Rate mL/min Glucose Level 87 mg/dl (70-220) Calcium Level 9.2 mg/dl (8.4-10.2 ) Phosphorus 6.8 Level mg/dl (2.5-4.9) Magnesium 2.3 Level mg/dl (1.7-2.5) Total 2.0 Bilirubin mg/dl (0.2-1.3) Direct 1.30 Bilirubin mg/dl (0.00-0.2 0) Indirect 0.7 Bilirubin mg/dl (0-1.1) Aspartate Amino 91 IU/L (15-46) Transf (AST/SGO T) Alanine 107 Aminotransferas IU/L (13-69) e (ALT/SGPT) Alkaline 244 Phosphatase IU/L (42-121) Total Protein 7.4 g/dl (6.1-8.1) Albumin 3.8 g/dl (3.3-4.9) Globulin 3.60 g/dl (1.3-3.2) Albumin/Globuli 1.05 n Ratio Hepatitis B NEGATIVE (NEGAT Surface MARY) Antigen Hepatitis C NEGATIVE (NEGAT Antibody MARY) White Blood 6.9 Count 10^3/ul (4.8-1 0.8) Red Blood 4.75 Count 10^6/ul (4.70- 6.10) Hemoglobin 14.3 g/dl (14.0-18. 0) Hematocrit 44.0 % (42.0-52.0) Mean 92.6 Corpuscular fl (82.0-101.0 Volume ) Mean 30.1 Corpuscular pg (29.0-33.0) Hemoglobin Mean 32.5 Corpuscular g/dl (32.0-37. Hemoglobin Conc 0) ent Red Cell 14.4 Distribution % (11.5-14.5) Width Platelet Count 232 10^3/UL (140-4 15) Mean Platelet 10.4 Volume fl (7.4-10.4) Immature 0.400 Granulocytes % % (0.001-0.429 ) Neutrophils % 62.6 % (39.0-77.0) Lymphocytes % 19.5 % (15.0-51.0) Monocytes % 9.1 % (0.0-11.0) Eosinophils % 7.1 % (0.0-7.0) Basophils % 1.3 % (0.0-2.0) Nucleated Red 0.0 Blood Cells % /100WBC (0.0-0 .0) Immature 0.030 Granulocytes # 10^3/ul (0.0-0 .031) Neutrophils # 4.3 10^3/ul (1.6-7 .5) Lymphocytes # 1.4 10^3/ul (0.8-2 .9) Monocytes # 0.6 10^3/ul (0.3-0 .9) Eosinophils # 0.5 10^3/ul (0.0-0 .5) Basophils # 0.1 10^3/ul (0.0-0 .1) Nucleated Red 0.0 Blood Cells # 10^3/ul (0.0-0 .0) Bedside 79 84 Glucose mg/dL (70-220) mg/dL (70-220) DEVORA SNIDER NP May 05, 2019 10:33
[2019-05-05] MEDS ORDERED: CLOP75TA28 PO (10:43)
--- NOTE | 2019-05-05 16:21 | CONS ---
Assessment/Plan Assessment/Plan Hospital Course (Demo Recall) 1. end-stage renal disease: Patient is on hemodialysis Monday. 2. Hyperkalemia due to ESRD 3. History of systolic CHF 4. Diabetes mellitus type II 5. Hypertension, uncontrolled 6. Cholelithiasis and mild gallbladder wall thickening. Assessment/Plan (Daily) -Avoid nephrotoxic agents. -phos level is elevated , c/w Renvella -pt is discharged -C/W HD Consultation Date/Type/Reason Admit Date/Time May 03, 2019 at 04:48 Initial Consult Date 05/03/2019 Type of Consult nephrology Date/Time of Note DATE: 05/05/19 TIME: 16:20 Exam/Review of Systems Exam Vitals Vital Signs Date Temp Pulse Resp B/P (MAP) Pulse Ox O2 O2 Flow FiO2 Time Delivery Rate 05/05/19 81 16:10 05/05/19 97.6 18 146/82 98 13:53 (103) 05/05/19 Room Air 13:40 Intake and Output 05/04/19 05/04/19 05/05/19 1515:00 23:00 07:00 IntakeIntake Total 690 ml 600 ml 530 ml BalanceBalance 690 ml 600 ml 530 ml Exam left AV fistula Constitutional: alert, oriented Head: normocephalic Eyes: nl conjunctiva Respiratory: diminished breath sounds Cardiovascular: regular rate and rhythm Results Result Diagram: 05/05/19 0446 05/05/19 0445 Results 24hrs Laboratory Tests Test 05/04/19 17:35 05/04/19 20:13 05/05/19 01:05 05/05/19 04:45 Bedside Glucose 123 173 92 Sodium Level 138 Potassium Level 4.7 Chloride Level 96 L Carbon Dioxide Level 25 Anion Gap 17 H Blood Urea Nitrogen 48 #H Creatinine 10.08 #H Est Glomerular 5 L Filtrat Rate mL/min Glucose Level 87 Calcium Level 9.2 Phosphorus Level 6.8 H Magnesium Level 2.3 Total Bilirubin 2.0 H Direct Bilirubin 1.30 H Indirect Bilirubin 0.7 Aspartate Amino 91 H Transf (AST/SGOT) Alanine 107 H Aminotransferase (AL T/SGPT) Alkaline Phosphatase 244 H Total Protein 7.4 Albumin 3.8 Globulin 3.60 H Albumin/Globulin 1.05 Ratio Hepatitis B Surface NEGATIVE Antigen Hepatitis C Antibody NEGATIVE Test 05/05/19 04:46 05/05/19 05:04 05/05/19 08:19 05/05/19 12:28 White Blood Count 6.9 # Red Blood Count 4.75 Hemoglobin 14.3 Hematocrit 44.0 Mean Corpuscular 92.6 Volume Mean Corpuscular 30.1 Hemoglobin Mean Corpuscular 32.5 Hemoglobin Concent Red Cell 14.4 Distribution Width Platelet Count 232 Mean Platelet Volume 10.4 Immature 0.400 Granulocytes % Neutrophils % 62.6 Lymphocytes % 19.5 Monocytes % 9.1 Eosinophils % 7.1 H Basophils % 1.3 Nucleated Red Blood 0.0 Cells % Immature 0.030 Granulocytes # Neutrophils # 4.3 Lymphocytes # 1.4 Monocytes # 0.6 Eosinophils # 0.5 Basophils # 0.1 Nucleated Red Blood 0.0 Cells # Bedside Glucose 79 84 133 Medications Medication Current Medications Aspirin (Halfprin) 81 mg DAILY PO Last administered on 05/05/19 08:20; Admin Dose 81 MG; Start 05/03/19 at 09:00 Atorvastatin Calcium (Lipitor) 20 mg DAILY@2100 PO Last administered on 05/03/19at 22:27; Admin Dose 20 MG; Start 05/03/19 at 21:00; Status Hold Folic Acid (Folic Acid) 1 mg DAILY PO Last administered on 05/05/19 08:20; Admin Dose 1 MG; Start 05/03/19 at 09:00 Hydralazine HCl (Apresoline) 25 mg TID PO Last administered on 05/05/19 12:48; Admin Dose 25 MG; Start 05/03/19 at 09:00 Isosorbide Dinitrate (Isordil) 20 mg TID PO Last administered on 05/05/19 12:47; Admin Dose 20 MG; Start 05/03/19 at 09:00 Insulin Aspart (Novolog Insulin Pen) NOVOLOG *MILD* ALGORI... Q4 SC Last administered on 05/04/19 20:21; Admin Dose 1 UNIT; Start 05/03/19 at 05:00 IV Flush (NS 3 ml) 3 ml PER PROTOCOL IV ; Start 05/03/19 at 05:00 Ondansetron HCl (Zofran Inj) 4 mg Q4 PRN IV NAUSEA/VOMITING; Start 05/03/19 at 05:00 Acetaminophen (Tylenol Tab) 650 mg Q6H PRN PO .PAIN 1-3 OR TEMP; Start 05/03/19 at 05:00 Morphine Sulfate (morphine) 2 mg Q4H PRN IV .PAIN 7-10; Start 05/03/19 at 05:00 Docusate Sodium (Colace) 100 mg Q12H PRN PO .CONSTIPATION; Start 05/03/19 at 05:00 Bisacodyl (Dulcolax) 5 mg DAILY PRN PO .CONSTIPATION; Start 05/03/19 at 05:00 Piperacillin Sod/ Tazobactam Sod 50 ml @ 100 mls/hr Q8 IVPB Last administered on 05/05/19at 05:46; Admin Dose 100 MLS/HR; Start 05/03/19 at 06:00 Miscellaneous Information 1 ea NOTE XX ; Start 05/03/19 at 05:30 Glucose (Glutose) 15 gm Q15M PRN PO DECREASED GLUCOSE; Start 05/03/19 at 05:30 Glucose (Glutose) 22.5 gm Q15M PRN PO DECREASED GLUCOSE; Start 05/03/19 at 05:30 Dextrose (D50w Syringe) 25 ml Q15M PRN IV DECREASED GLUCOSE; Start 05/03/19 at 05:30 Dextrose (D50w Syringe) 50 ml Q15M PRN IV DECREASED GLUCOSE; Start 05/03/19 at 05:30 Glucagon (Glucagen) 1 mg Q15M PRN IM DECREASED GLUCOSE; Start 05/03/19 at 05:30 Glucose (Glutose) 15 gm Q15M PRN BUCCAL DECREASED GLUCOSE; Start 05/03/19 at 05:30 Clopidogrel Bisulfate (plaVIX) 75 mg DAILY PO Last administered on 05/05/19at 08:21; Admin Dose 75 MG; Start 05/03/19 at 14:30 Metoprolol Tartrate (Lopressor) 50 mg BID PO Last administered on 05/05/19at 08:21; Admin Dose 50 MG; Start 05/03/19 at 21:00 Pantoprazole (Protonix Tab) 40 mg BID@06,18 PO Last administered on 05/05/19at 05:56; Admin Dose 40 MG; Start 05/04/19 at 18:00 Sucralfate (Carafate Susp) 1 gm QID GTB Last administered on 05/05/19at 12:47; Admin Dose 1 GM; Start 05/04/19 at 17:00 Sevelamer Carbonate (Renvela) 1,600 mg WITH MEALS PO Last administered on 05/05/19at 12:48; Admin Dose 1,600 MG; Start 05/04/19 at 18:00 Hydralazine HCl (Apresoline) 10 mg Q4H PRN IV SBP greater than 170 Last administered on 05/05/19at 00:45; Admin Dose 10 MG; Start 05/05/19 at 00:30 LEWIS LOJA May 05, 2019 16:21
[2019-05-05] MEDS ORDERED: SEVE800T7 PO (16:24)
== END 2019-05-05 17:35 | disposition home or self-care (01) | DRG 444 ==
LOC: E/R 03:08 → 6WM 04:48 → MS1 05-04 23:39
PROVIDERS: ADMIT Family Medicine; ATTEND Family Medicine
DX: K80.20 Calculus of gallbladder without cholecystitis without obstruction (principal); N18.6 End stage renal disease; I13.2 Hypertensive heart and chronic kidney disease with heart failure and with stage 5 chronic kidney disease, or end stage renal disease; I50.22 Chronic systolic (congestive) heart failure; E11.22 Type 2 diabetes mellitus with diabetic chronic kidney disease; E11.319 Type 2 diabetes mellitus with unspecified diabetic retinopathy without macular edema; E78.5 Hyperlipidemia, unspecified; E87.5 Hyperkalemia; I25.10 Atherosclerotic heart disease of native coronary artery without angina pectoris; I25.2 Old myocardial infarction; Z86.73 Personal history of transient ischemic attack (TIA), and cerebral infarction without residual deficits; Z99.2 Dependence on renal dialysis; Z79.82 Long term (current) use of aspirin; Z95.5 Presence of coronary angioplasty implant and graft
CPT/HCPCS: 36415; 71045; 74181; 76705; 78226; 80053; 80061; 82652; 82962; 83036; 83690; 83735; 84100; 84484; 85025; 85610; 85730; 86038; 86255; 86704; 86709; 86803; 87340; 90935; 93005; 93306; 96374; 96375; A9537; J0360; J1815; J2270; J2405; J2543; J7030